=== PATIENT | female | born 1990 | race Caucasian/White ===

== ENCOUNTER 2020-09-13 23:54 | Emergency (ER) | payer OTHER, SELFPAY ==
[2020-09-14 02:06] VITALS: BP 136/78; PULSE 105; RESP 14; TEMP 37.2; O2SAT 96; BMI 16.1
--- NOTE | 2020-09-14 02:07 | ED.BACK ---
HPI - Back Pain/Injury General Chief Complaint: Back Pain/Injury Stated Complaint: Hip/Leg pain Time Seen by Provider: 09/14/20 02:05 History of Present Illness HPI Narrative: Patient is a 30-year-old female presents today with having back pain radiating down her left lower extremity. Patient denies any bowel urinary incontinence. No focal weakness. Has been having this type of pain since the end of last year. Currently already on tramadol. No coughing or congestion or upper respiratory symptoms. Pain is same as prior. Is 08/28 as shooting. Sharp in nature. Related Data Home Medications Medication Instructions Recorded Confirmed tramadol 09/14/20 Allergies Allergy/AdvReac Type Severity Reaction Status Date / Time amoxicillin [AMOXICILLIN] Allergy Mild GIVES ME Unverified 08/05/20 16:24 ANOTHER INFECTION Review of Systems Review of Systems: Constitutional: No Weight loss, No Fever, No Chills, No Night Sweats, No Fatigue, No Malaise ENT/Mouth: No Hearing loss, No Ear Pain, No Nasal Congestion, No Sinus Pain, No Hoarseness, No sore throat, No Rhinorrhea, No Swallowing Difficulty Eyes: No Eye Pain, No Swelling, No Redness, No Foreign Body, No Discharge, No Vision Changes Cardiovascular: No Chest Pain, No SOB, No Dyspnea on Exertion, No Orthopnea, No Edema, No Palpitations Respiratory: No Cough, No Sputum, No Wheezing, No Smoke Exposure, No Dyspnea Gastrointestinal: No Nausea, No Vomiting, No Diarrhea, No Constipation, No abdominal Pain, No Hematochezia, No Melena Genitourinary: no irregular bleeding, No Dysuria, No Urinary Frequency, No Hematuria, No Urinary Incontinence, No Urgency, No Flank Pain, No Urinary Flow Changes, No Hesitancy Musculoskeletal: No joint pain, No Myalgias, No Joint Swelling Skin: No Skin Lesions, No rash Neuro: No Weakness, No Numbness, No Paresthesias, No Loss of Consciousness, No Dizziness, No Headache Psych: No Anxiety/Panic, No Depression, No SI/HI/AH/VH, No Social Issues, Heme/Lymph: No Bruising, No Bleeding,No Lymphadenopathy Endocrine: No Polyuria, No Polydipsia, No Temperature Intolerance PMFSH Past Medical History Attestation statement: The following information was validated with the patient. Medical History (Updated 09/14/20 @ 04:02 by Yaritza Villegas MD) Sciatica Social History Social History Alcohol intake: never Smoking Status: Current every day smoker Smoked in Last 30 Days: Yes Substance Use Type: Marijuana Substance Use Frequency: Occasionally Last Used Substance: Days (ago) Any prior treatment program specific to substance use: No Advance Directives: No Advance Directives Information Provided: No Physical Exam Vital Signs: Vital Signs: Vital Signs Temp Pulse Resp BP Pulse Ox 09/14/20 03:01 94 14 109/76 98 09/14/20 02:47 94 14 113/67 98 09/14/20 02:42 14 111/64 96 09/14/20 02:35 14 09/14/20 02:06 98.9 F 105 H 14 136/78 96 Body Mass Index 16.1 Appearance: Alert. Oriented X3. No acute distress. Eyes: Pupils equal, round and reactive to light. ENT: Pharynx normal. Neck: Normal inspection. Neck supple. No lymph nodes noted. No crepitus CVS: Normal heart rate and rhythm. Pulses normal. Normal S1 and S2 Respiratory: No respiratory distress. Breath sounds normal. No Wheezing. No rales Abdomen: Soft and nontender. No rigidity. No distention. good BS x4 Skin: Skin warm and dry. Normal skin color. Normal skin turgor. Extremities: Positive pain on straight leg raise test on the right side. Patient has good sensation bilateral lower extremity. Pulse 2 +at dorsalis pedis. Sensation grossly intact. Skin intact. Neuro: Oriented X 3. No motor deficit. No sensory deficit. Moving all extermities. No slurred speech MDM - Back Pain/Injury MDM Narrative Medical decision making narrative: No bowel urinary incontinence. No focal weakness. Pain similar to previous bouts. No trauma today. No history of IV drug use. Patient will be given pain medication. Will monitor carefully. Pain improved. Will discharge patient home. Close follow-up on an outpatient basis. Differential Diagnosis Differential diagnosis: Likely lumbar radiculopathy and sciatica Discharge Plan Discharge Clinical Impression: Sciatica Patient Disposition: Home, Self-Care Instructions: Sciatica (ED) Prescriptions: No Action tramadol 10 mg tablet RF: 0 Referrals: Farrukh Sullivan MD [Primary Care Provider] - 2 days
[2020-09-14] MEDS: LORazepam 2 MG/ML VIAL 0.5 MG IVPUSH (02:34)
[2020-09-14 02:35] VITALS: RESP 14
[2020-09-14] MEDS: Ketorolac Tromethamine 30 MG/ML VIAL IVPUSH (02:35)
[2020-09-14] MEDS: HYDROmorphone HCl 0.5 MG/0.5 ML SYRINGE IVPUSH (02:35)
--- NOTE | 2020-09-14 02:41 | PC.NURSE ---
pt medicated for left lower back pain rad down her leg and numbness.
[2020-09-14 02:42] VITALS: BP 111/64; RESP 14; O2SAT 96
[2020-09-14 02:47] VITALS: BP 113/67; PULSE 94; RESP 14; O2SAT 98
[2020-09-14 03:01] VITALS: BP 109/76; PULSE 94; RESP 14; O2SAT 98
--- NOTE | 2020-09-14 03:02 | PC.NURSE ---
pt is feeling relief but still has a stabbing pain to her left lower back.
[2020-09-14 04:00] VITALS: BP 112/69; PULSE 73; RESP 16; O2SAT 100
== END 2020-09-14 04:33 | disposition home or self-care (01) ==
PROVIDERS: Emergency Provider Emergency Medicine Emergency Medical Services; PCP Internal Medicine
DX: M54.32 Sciatica, left side (principal); M54.31 Sciatica, right side; M79.605 Pain in left leg; F17.200 Nicotine dependence, unspecified, uncomplicated; Z71.6 Tobacco abuse counseling; F12.90 Cannabis use, unspecified, uncomplicated; Z79.899 Other long term (current) drug therapy
CPT/HCPCS: 96374; 96375; 99284; J1170; J1885; J2060

== ENCOUNTER 2020-09-14 17:22 | Emergency (ER) | payer OTHER, SELFPAY ==
[2020-09-14 18:32] VITALS: BP 140/88; PULSE 132; RESP 17; TEMP 37.3; O2SAT 99; BMI 16.1
--- NOTE | 2020-09-14 18:37 | XR_ITS ---
EXAMINATION: XR LUMBOSACRAL SPINE CLINICAL INFORMATION: Low back pain COMPARISON: Lumbar spine 10/09/2019 TECHNIQUE: Three views of the lumbosacral spine. FINDINGS: The vertebral bodies and posterior elements are normal. The disc spaces are preserved and the vertebral alignment is normal. The paraspinal soft tissues are normal. XR/XR lumbar spine 2-3V IMPRESSION: Normal lumbar spine.
[2020-09-14 19:24] LABS: Glucose Urine UA NEG (NEG); Leukocyte Esterase Urine NEG (NEG); Nitrite Urine NEG (NEG); Urine Blood 1+ (NEG); Urine Ketones 15 MG/DL (NEG); Urine Protein NEG (NEG-TRACE)
[2020-09-14 19:25] LABS: Appearance Urine CLEAR; Color Urine YELLOW
[2020-09-14 19:28] LABS: Bacteria Urine 1+ /LPF; Squamous Epithelial Cell Urine 1+ /LPF; WBC Urine 0-2 /HPF (0-4)
[2020-09-14 19:29] LABS: UPreg QC Valid YES; Urine Pregnancy NEGATIVE (NEGATIVE)
--- NOTE | 2020-09-14 19:34 | ED_ITS ---
HPI - Back Pain/Injury General Chief Complaint: Back Pain/Injury Stated Complaint: back pain Time Seen by Provider: 09/14/20 18:37 Source: patient Mode of arrival: ambulatory Limitations: no limitations History of Present Illness HPI Narrative: states history of lower back problems in the setting of pullback muscles in the past and does lot of repetitive movement at work but no heavy lifting as she knows she has back problems and felt like she pulled her back couple days ago and has been having continued pain with certain movements. MD elicited complaint: back pain Pertinent past history: prior back pain Onset (ago): day(s) Severity: moderate Similar Symptoms Previously: Yes Location: lumbar spine Radiation: none Exacerbating factors: none Relieving factors: none Work related injury: No Related Data Home Medications Medication Instructions Recorded Confirmed tramadol 09/14/20 Previous Rx's Medication Instructions Recorded cyclobenzaprine 10 mg PO TID PRN #20 tab 09/14/20 ibuprofen 800 mg PO Q8H PRN #30 tab 09/14/20 Allergies Allergy/AdvReac Type Severity Reaction Status Date / Time amoxicillin [AMOXICILLIN] Allergy Mild GIVES ME Verified 09/14/20 18:32 ANOTHER INFECTION Review of Systems Review of Systems: Constitutional: No Weight loss, No Fever, No Chills, No Night Sweats, No Fatigue, No Malaise ENT/Mouth: No Hearing loss, No Ear Pain, No Nasal Congestion, No Sinus Pain, No Hoarseness, No sore throat, No Rhinorrhea, No Swallowing Difficulty Eyes: No Eye Pain, No Swelling, No Redness, No Foreign Body, No Discharge, No Vision Changes Cardiovascular: No Chest Pain, No SOB, No Dyspnea on Exertion, No Orthopnea, No Edema, No Palpitations Respiratory: No Cough, No Sputum, No Wheezing, No Smoke Exposure, No Dyspnea Gastrointestinal: No Nausea, No Vomiting, No Diarrhea, No Constipation, No abdominal Pain, No Hematochezia, No Melena Genitourinary: no irregular bleeding, No Dysuria, No Urinary Frequency, No Hematuria, No Urinary Incontinence, No Urgency, No Flank Pain, No Urinary Flow Changes, No Hesitancy Musculoskeletal: [place] noted Skin: No rash Neuro: No Weakness, No Numbness, No Paresthesias, No Loss of Consciousness, No Dizziness, No Headache Psych: No Anxiety/Panic, No Depression, No SI/HI/AH/VH, No Social Issues Heme/Lymph: No Bruising, No Bleeding,No Lymphadenopathy Endocrine: No Polyuria, No Polydipsia, No Temperature Intolerance Yes all ot her systems are reviewed and are negative [facility] Past Medical History Attestation statement: The following information was validated with the patient. Medical History Sciatica Social History Social History Alcohol intake: never Smoking Status: Current every day smoker Substance Use Type: Marijuana Substance Use Frequency: Occasionally Advance Directives: No Advance Directives Information Provided: No Physical Exam Vital Signs: Vital Signs: Vital Signs Temp Pulse Resp BP Pulse Ox 09/14/20 20:02 99.6 F 117 H 18 119/88 97 09/14/20 18:32 99.2 F 132 H 17 140/88 H 99 Body Mass Index 16.1 reviewed Const: General: cooperative and healthy appearing; No acute distress or intoxicated appearing Nutritional Appearance: average body habitus Orientation/consciousness: patient oriented x3 HENMT: Head: Yes normal to inspection Ears: hearing grossly normal bilaterally Eyes: General: appearance normal, both eyes and all related structures Visual Petersen: normal visual petersen by confrontation Neck: Neck: Yes normal visual inspection and No tender Thyroid: Thyroid normal Chest: Chest palpation & inspection: normal inspection of the chest Resp: Effort & Inspection: normal respiratory effort Cardio: Jugular venous distension: no JVD GI: Inspection: Yes normal to inspection Percussion: Yes normal to percussion Auscultation: normal bowel sounds : General: Yes no CVA tenderness Back/Spine/Pelvis: Back: no CVA tenderness Back/spine/pelvis image: 1. mild soft Tissue TTP, no midline to palpation, no step-off, rash. Skin: General skin exam: no rashes or lesions noted Neuro: General: patient oriented x3 Extrem: General: Yes normal to inspection MDM - Back Pain/Injury MDM Narrative Medical decision making narrative: Feels better after Toradol. Will discharge home with NSAIDs/Flexeril. Stable for discharge. Out of bed ambulatory status with gait no low back pain red flags. Differential Diagnosis Differential diagnosis: Likely lumbar radiculopathy, sciatica and strain of lumbar region; Unlikely renal colic, pyelonephritis, thoracic back pain, AAA and discitis Lab Data Labs: Lab Results 09/14/20 Range/Units 19:12 Urine Color YELLOW Urine Appearance CLEAR Urine pH 6.0 (5.0-8.0) Ur Specific [place] 1.020 (1.005-1.025) Urine Protein NEG (NEG-TRACE) MG/DL Urine Glucose (UA) NEG (NEG) MG/DL Urine Ketones 15 (NEG) MG/DL Urine Blood 1+ H (NEG) Urine Nitrite NEG (NEG) Ur Leukocyte Esterase NEG (NEG) Urine RBC 1-4 (0) /HPF Urine WBC 0-2 (0-4) /HPF Ur Squamous Epith Cells 1+ /LPF Urine Bacteria 1+ /LPF Urine Test NEGATIVE (NEGATIVE) Discharge Plan Discharge Clinical Impression: Strain of lumbar region Patient Disposition: Home, Self-Care Prescriptions: New cyclobenzaprine 10 mg tablet 10 mg PO TID PRN (Reason: muscle spasm) Qty: 20 RF: 0 ibuprofen 800 mg tablet 800 mg PO Q8H PRN (Reason: pain) Qty: 30 RF: 0 No Action tramadol 10 mg tablet RF: 0 Referrals: Physician,Unknown [Primary Care Provider] - 5 days (Primary ) Interventions: ED Discharge Assessment Last Done: 09/14/20 21:11 Discharge Date/Time: 09/14/20 21:12
[2020-09-14 20:02] VITALS: BP 119/88; PULSE 117; RESP 18; TEMP 37.6; O2SAT 97
[2020-09-14] MEDS: Ketorolac Tromethamine 30 MG/ML VIAL IM (20:06)
== END 2020-09-14 21:12 | disposition home or self-care (01) ==
PROVIDERS: Nurse Practitioner Primary Care; Emergency Provider Internal Medicine
DX: S39.012A Strain of muscle, fascia and tendon of lower back, initial encounter (principal); M54.6 Pain in thoracic spine; X50.9XXA Other and unspecified overexertion or strenuous movements or postures, initial encounter; X50.0XXA Overexertion from strenuous movement or load, initial encounter; Y93.9 Activity, unspecified; Y92.9 Unspecified place or not applicable; Y99.9 Unspecified external cause status; Z79.899 Other long term (current) drug therapy; F17.200 Nicotine dependence, unspecified, uncomplicated; Z71.6 Tobacco abuse counseling; F12.90 Cannabis use, unspecified, uncomplicated
CPT/HCPCS: 72100; 81001; 81025; 96372; 99284; J1885

== ENCOUNTER 2021-02-07 19:22 | Emergency (ER) | payer OTHER, SELFPAY ==
[2021-02-07 19:29] VITALS: BP 109/67; PULSE 98; RESP 16; TEMP 36.9; O2SAT 98; BMI 16.1
[2021-02-07 20:45] LABS: Glucose Urine UA NEG (NEG); Leukocyte Esterase Urine TRACE (NEG); Nitrite Urine NEG (NEG); Specific Gravity - Urine >= 1.030 (1.005-1.025); Urine Blood 2+ (NEG); Urine Ketones NEG (NEG); Urine Protein 2+ MG/DL (NEG-TRACE)
[2021-02-07 20:51] LABS: Appearance Urine HAZY; Color Urine YELLOW
[2021-02-07 21:01] LABS: Bacteria Urine 1+ /LPF; Mucus Urine TRACE /LPF; Squamous Epithelial Cell Urine TRACE /LPF
[2021-02-07 22:05] LABS: UPreg QC Valid YES; Urine Pregnancy NEGATIVE (NEGATIVE)
--- NOTE | 2021-02-07 22:13 | ED_ITS ---
HPI - Female Genitourinary General Chief complaint: Urogenital-Female Stated complaint: diff urinating, abd pain Time Seen by Provider: 02/07/21 21:49 Source: patient Mode of arrival: ambulatory Limitations: no limitations History of Present Illness HPI Narrative: Patient states increased urinary frequency. Patient denies any abdominal pain, flank pain, fever, or chills. Patient states mild dysuria. Patient was concerned for possible STI exposure due to her still being involved with her ex- and hypertension. She denies any vaginal bleeding, vaginal discharge, or vaginal lesions. Related Data Home Medications Medication Instructions Recorded Confirmed tramadol 09/14/20 Previous Rx's Medication Instructions Recorded cyclobenzaprine 10 mg PO TID PRN #20 tab 09/14/20 ibuprofen 800 mg PO Q8H PRN #30 tab 09/14/20 cephalexin 500 mg PO QID #28 cap 02/07/21 doxycycline monohydrate 100 mg PO BID #14 cap 02/07/21 Allergies Allergy/AdvReac Type Severity Reaction Status Date / Time amoxicillin [AMOXICILLIN] Allergy Mild GIVES ME Verified 02/07/21 19:29 ANOTHER INFECTION Review of Systems Review of Systems: Yes all other systems are reviewed and are negative Constitutional: Constitutional: Reports as per HPI and Reports no additional constitutional complaints Eyes: Eyes: Reports as per HPI and Reports no additional eye complaints ENT: Reports system reviewed and no additional complaints, except as documented and Reports as per HPI Cardiovascular: Cardiovascular: Reports as per HPI and Reports no additional cardiovascular complaints Respiratory: Respiratory: Reports as per HPI and Reports no additional respiratory complaints Gastrointestinal: Gastrointestinal: Reports as per HPI, Reports no additional gastrointestinal complaints, Denies abdominal pain, Denies heartburn, Denies diarrhea, Denies loose stools, Denies nausea and Denies other Genitourinary: Genitourinary: Reports no additional female genitourinary complaints, Reports as per HPI and Reports dysuria Musculoskeletal: Musculoskeletal: Reports no additional musculoskeletal complaints and Reports as per HPI Neurologic: Reports system reviewed and no additional complaints, except as documented and Reports as per HPI Psychiatric: Psychiatric: Reports no additional psychiatric complaints and Reports as per HPI [facility] Past Medical History Medical History Sciatica Social History Social History Alcohol intake: never Smoking Status: Current every day smoker Use of substances other than those prescribed or required for medical reasons: Yes Substance Use Type: Marijuana Advance Directives: No Advance Directives Information Provided: Yes Physical Exam Vital Signs: Vital Signs: Last Vital Signs Temp 98.4 F 02/07/21 19:29 Pulse 82 02/07/21 22:27 Resp 14 02/07/21 22:27 BP 102/66 02/07/21 22:27 Pulse Ox 100 02/07/21 22:27 Body Mass Index 16.1 Const: General: cooperative, healthy appearing, comfortable, no acute distress, well developed, alert, awake and Physically active HENMT: Head: Yes normal to inspection, Yes No palpable skull fracture present, Yes normocephalic, Yes atraumatic, No abrasion, No Maravilla's sign, No contusion, No cranial bruits, No hematoma, No laceration, No occipital foramen tenderness, No palpable skull fracture, No raccoon eyes, No scalp lesion, No scalp tenderness, No Temporal artery tenderness present and No periorbital ecchymosis Eyes: General: appearance normal, both eyes and all related structures Neck: Neck: Yes normal visual inspection, Yes full ROM, Yes no lymphadenopathy, Yes no meningeal signs, Yes trachea midline, Yes supple and No tender Chest: Chest palpation & inspection: normal inspection of the chest and normal palpation of entire chest wall Resp: Effort & Inspection: normal respiratory effort and able to speak in complete sentences Auscultation: clear to auscultation bilaterally Cardio: Jugular venous distension: no JVD Heart sounds: S1 normal heart sound present and S2 normal heart sound present GI: Inspection: Yes normal to inspection and No abdominal wall ecchymosis Palpation (GI): Soft to palpation, not firm, nontender, no guarding and not rigid : General: No CVA tenderness and Yes no CVA tenderness Back/Spine/Pelvis: Back: no CVA tenderness, No CVA tenderness and No back tenderness Skin: General skin exam: no rashes or lesions noted and elasticity normal Neuro: General: patient oriented x3, no meningeal signs and CN's II-XI intact bilaterally Extrem: General: Yes normal to inspection and Yes full ROM Psych: Appearance: grossly normal, well kempt and not disheveled Course Course Course Narrative: History physical exam negative for signs pyelonephritis or kidney stone. Patient does not have any abdominal tenderness or CVA flanks. Will send UA and chlamydia gonorrhea sample Reevaluation(s) Reevaluation #1: Patient is agreeable to be treated prophylactically STD. Patient does not have allergic reaction to amoxicillin. Patient was taking amoxicillin she gets another infection, but denies itchiness of skin, itchy rash, swelling of lips, swelling of tongue, itchy throat, or shortness of breath/chest pain.. Will give ceftriaxone IM and discharged with doxycycline and Keflex MDM - Female Genitourinary MDM Narrative Medical decision making narrative: UTI. STD exposure. Lab Data Labs: Lab Results 02/07/21 02/07/21 Range/Units 20:12 20:12 Urine Color YELLOW Urine Appearance HAZY Urine pH 6.0 (5.0-8.0) Ur Specific [place] >= 1.030 H (1.005-1.025) Urine Protein 2+ H (NEG-TRACE) MG/DL Urine Glucose (UA) NEG (NEG) MG/DL Urine Ketones NEG (NEG) MG/DL Urine Blood 2+ H (NEG) Urine Nitrite NEG (NEG) Ur Leukocyte Esterase TRACE H (NEG) Urine RBC 1-4 (0) /HPF Urine WBC 5-9 H (0-4) /HPF Ur Squamous Epith Cells TRACE /LPF Urine Bacteria 1+ /LPF Urine Mucus TRACE /LPF Urine Test NEGATIVE (NEGATIVE) Discharge Plan Discharge Clinical Impression: Urinary tract infection Patient Disposition: Home, Self-Care Instructions: Urinary Tract Infection in Women (ED) Additional Instructions: Return to the ED immediately any abdominal pain, nausea, vomiting, flank pain, fever,, dysuria, hematuria, vaginal bleeding, or any other concerning symptoms. Prescriptions: New cephalexin 500 mg capsule 500 mg PO QID Qty: 28 RF: 0 doxycycline monohydrate 100 mg capsule 100 mg PO BID Qty: 14 RF: 0 No Action tramadol 10 mg tablet RF: 0 cyclobenzaprine 10 mg tablet 10 mg PO TID PRN (Reason: muscle spasm) Qty: 20 RF: 0 ibuprofen 800 mg tablet 800 mg PO Q8H PRN (Reason: pain) Qty: 30 RF: 0 Referrals: Farrukh Sullivan MD [Primary Care Provider] - 2 days (UTI) Discharge Date/Time: 02/07/21 23:36 Print Language: Slovenian
[2021-02-07 22:27] VITALS: BP 102/66; PULSE 82; RESP 14; O2SAT 100
[2021-02-07] MEDS: cefTRIAXone sodium 500 MG, Lidocaine HCl 1 % MPF 1 ML IM (23:02)
[2021-02-08 09:51] LABS: CT PCR DETECTED (Not Detect.); NG PCR NOT DETECTED (Not Detect.)
== END 2021-02-07 23:36 | disposition home or self-care (01) ==
PROVIDERS: Physician Assistant; Emergency Provider Emergency Medicine; PCP Internal Medicine
DX: N39.0 Urinary tract infection, site not specified (principal); A56.02 Chlamydial vulvovaginitis; I10 Essential (primary) hypertension; F17.200 Nicotine dependence, unspecified, uncomplicated; F12.90 Cannabis use, unspecified, uncomplicated
CPT/HCPCS: 36415; 81001; 81025; 87491; 87591; 96372; 99284; J0696

== ENCOUNTER 2021-02-16 09:52 | Outpatient (REF) | payer OTHER, SELFPAY ==
[2021-02-16 12:31] LABS: Syphilis Screen Nonreactive (Nonreactive)
[2021-02-17 07:58] LABS: HBsAGNum1 0.14 S/CO (0.00-0.99); HIV AB/AG Nonreactive (Nonreactive); HIV Num 1 0.12 S/CO (0.00-0.99); Hepatitis B Surface Antigen Negative (Negative)
[2021-02-17 08:56] LABS: ~HepC Num1 0.08 S/CO (0.00-0.79); ~Hepatitis C Antibody Nonreactive (Nonreactive)
[2021-02-17 14:27] LABS: BV Int Neg Control Negative (Negative); BV Int Pos Control Positive (Positive)
== END 2021-02-16 09:53 | disposition home or self-care (01) ==
LOC: HO.LAB 09:52
PROVIDERS: PCP Internal Medicine; Visit Provider Obstetrics & Gynecology
DX: Z01.419 Encounter for gynecological examination (general) (routine) without abnormal findings (principal); Z11.4 Encounter for screening for human immunodeficiency virus [HIV]; A74.9 Chlamydial infection, unspecified
CPT/HCPCS: 36415; 86780; 86803; 87340; 87389; 87480; 87510; 87660

== ENCOUNTER 2021-03-15 11:12 | Outpatient (REF) | payer OTHER, SELFPAY ==
[2021-03-15 17:56] LABS: CT PCR NOT DETECTED (Not Detect.); NG PCR DETECTED (Not Detect.)
[2021-03-16 08:08] LABS: HIV AB/AG Nonreactive (Nonreactive)
[2021-03-16 08:29] LABS: HBsAGNum1 0.25 S/CO (0.00-0.99); Hepatitis B Surface Antigen Negative (Negative); ~HepC Num1 0.14 S/CO (0.00-0.79); ~Hepatitis C Antibody Nonreactive (Nonreactive)
[2021-03-16 08:46] LABS: Syphilis Screen Nonreactive (Nonreactive)
== END 2021-03-15 11:13 | disposition home or self-care (01) ==
LOC: HO.LAB 11:12
PROVIDERS: PCP Internal Medicine; Visit Provider Obstetrics & Gynecology
DX: A74.9 Chlamydial infection, unspecified (principal); N39.0 Urinary tract infection, site not specified; F17.200 Nicotine dependence, unspecified, uncomplicated
CPT/HCPCS: 36415; 86780; 86803; 87086; 87340; 87389; 87491; 87591; 99212

== ENCOUNTER 2021-03-17 14:04 | Outpatient (REF) | payer OTHER, SELFPAY ==
[2021-03-18 08:03] LABS: Syphilis Screen Nonreactive (Nonreactive)
[2021-03-18 09:01] LABS: BV Int Neg Control Negative (Negative); BV Int Pos Control Positive (Positive)
== END 2021-03-17 14:05 | disposition home or self-care (01) ==
LOC: HO.LAB 14:04
PROVIDERS: PCP Internal Medicine; Visit Provider Obstetrics & Gynecology
DX: A54.9 Gonococcal infection, unspecified (principal)
CPT/HCPCS: 36415; 86780; 87480; 87510; 87660; 96372; 99212; J0696

== ENCOUNTER 2021-12-14 12:49 | Outpatient (REF) | payer OTHER, SELFPAY ==
[2021-12-14 15:11] LABS: Syphilis Screen Nonreactive (Nonreactive)
[2021-12-14 16:12] LABS: CT PCR DETECTED (Not Detect.); NG PCR NOT DETECTED (Not Detect.)
[2021-12-15 07:49] LABS: HBsAGNum1 0.17 S/CO (0.00-0.99); HIV AB/AG Nonreactive (Nonreactive); HIV Num 1 0.08 S/CO (0.00-0.99); Hepatitis B Surface Antigen Negative (Negative); ~HepC Num1 0.19 S/CO (0.00-0.79); ~Hepatitis C Antibody Nonreactive (Nonreactive)
[2021-12-15 10:02] LABS: BV Int Neg Control Negative (Negative); BV Int Pos Control Positive (Positive)
== END 2021-12-14 12:50 | disposition home or self-care (01) ==
LOC: HO.LAB 12:49
PROVIDERS: PCP Internal Medicine; Visit Provider Obstetrics & Gynecology
DX: B37.3 Candidiasis of vulva and vagina (principal); Z11.3 Encounter for screening for infections with a predominantly sexual mode of transmission
CPT/HCPCS: 36415; 86780; 86803; 87340; 87389; 87480; 87491; 87510; 87591; 87660; 99212

== ENCOUNTER 2022-08-15 10:11 | Emergency (ER) | payer OTHER, SELFPAY ==
[2022-08-15 10:34] VITALS: BP 112/70; PULSE 74; RESP 18; TEMP 37.1; O2SAT 99; BMI 18.6
--- NOTE | 2022-08-15 12:55 | ED.GENADULT ---
HPI - General Adult General Chief complaint: Dental/Oral Stated complaint: tooth pain Time Seen by Provider: 08/15/22 11:17 Source: patient Mode of arrival: ambulatory Limitations: no limitations History of Present Illness HPI narrative: Patient is a 32 year old female presenting to the emergency department today with dental pain. Patient states that her right upper tooth has been bothering her a lot more lately. Patient states that she is in the process of getting in with a dentist but the pain is unbearable. Patient states that she does not want any pain medication with narcotics in it. Patient denies any dizziness, lightheadedness, abdominal pain, nausea, vomiting, fever, chills, blurry vision, double vision, loss of vision, chest pain, difficulty breathing, shortness of breath, back pain, night sweats, pain with urination, increased urinary frequency, increased urinary urgency, blood in her urine or stool, syncope or a near syncopal episode, recent trauma or falls, bowel incontinence, bladder incontinence, bowel retention, bladder retention, or any other complaints at this time. Onset (ago): day(s) Location: mouth Radiation: non-radiation Severity: mild Severity scale (1-10): 2 Quality: constant Pain Consistency: constant Relieving factors: none Exacerbating factors: none Associated symptoms: denies other symptoms Treatments prior to arrival: none Related Data Home Medications Medication Instructions Recorded Confirmed tramadol 09/14/20 Previous Rx's Medication Instructions Recorded cyclobenzaprine 10 mg tablet 10 mg PO TID PRN muscle spasm #20 09/14/20 tabs ibuprofen 800 mg tablet 800 mg PO Q8H PRN pain #30 tabs 09/14/20 cephalexin 500 mg capsule 500 mg PO QID #28 caps 02/07/21 doxycycline monohydrate 100 mg 100 mg PO BID #14 caps 02/07/21 capsule terconazole 0.8 % vaginal cream 1 appful vaginal BEDTIME 3 days 02/18/21 #20 grams nitrofurantoin 100 mg PO BID 5 days #10 caps 03/15/21 monohydrate/macrocrystals 100 mg capsule (Macrobid) terconazole 0.8 % vaginal cream 1 appful vaginal BEDTIME 3 days 12/14/21 #20 grams metronidazole 500 mg tablet 500 mg PO BID 7 days #14 tabs 12/15/21 azithromycin 500 mg tablet 1,000 mg PO ONCE #2 tabs 12/16/21 fluconazole 150 mg tablet 150 mg PO QWEEK 2 doses #2 tabs 08/15/22 (Diflucan) naproxen 500 mg tablet 500 mg PO BID 7 days #14 tabs 08/15/22 penicillin V potassium 500 mg 500 mg PO BID 10 days #20 tabs 08/15/22 tablet Allergies Allergy/AdvReac Type Severity Reaction Status Date / Time amoxicillin [AMOXICILLIN] Allergy Mild GIVES ME Verified 03/17/21 14:12 ANOTHER INFECTION Review of Systems Constitutional: Constitutional: Reports no additional constitutional complaints, Denies chills, Denies fever(s) and Denies night sweats Eyes: Eyes: Reports no additional eye complaints, Denies blurry vision, Denies change in vision, Denies diplopia, Denies eye discharge, Denies loss of vision and Denies eye pain ENT: Denies dizziness Comments: right upper mouth pain Cardiovascular: Cardiovascular: Reports no additional cardiovascular complaints, Denies chest pain, Denies lightheadedness, Denies Loss of Consciousness and Denies dyspnea Respiratory: Respiratory: Reports no additional respiratory complaints and Denies dyspnea Gastrointestinal: Gastrointestinal: Reports no additional gastrointestinal complaints, Denies abdominal pain, Denies melena, Denies hematochezia, Denies change in bowel habits and Denies change in stool character Genitourinary: Genitourinary: Denies hematuria, Denies urinary frequency, Denies dysuria, Denies urinary incontinence, Denies urinary hesitancy and Denies urinary urgency Musculoskeletal: Musculoskeletal: Reports no additional musculoskeletal complaints, Denies numbness and Denies tingling Neurologic: Denies dizziness, Denies loss of vision, Denies numbness and Denies tingling Psychiatric: Psychiatric: Reports no additional psychiatric complaints Endocrine: Endocrine: Reports no additional endocrine complaints Hematologic/Lymphatic: Hematologic/Lymphatic: Reports no additional hematologic/lymphatic complaints Allergic/Immunologic: Allergic/Immunologic: Reports no additional allergic/immunologic complaints PMFSH Past Medical History Attestation statement: The following information was validated with the patient. Source: old records reviewed Medical History Sciatica Social History Social History Alcohol intake: never Substance Use Type: Marijuana Advance Directives: No Advance Directives Information Provided: Yes Physical Exam ED Vital Signs: Vital Signs - 24 hr 08/15/22 10:34 Temperature 98.8 F Pulse Rate 74 Respiratory Rate 18 Blood Pressure 112/70 Pulse Oximetry 99 Oxygen Delivery Method Room Air BMI result Body Mass Index 18.6 Const General: cooperative, no acute distress, alert and awake Nutritional Appearance: well nourished Orientation/consciousness: patient oriented x3 Limitations: no limitations HENMT Head: Yes normal to inspection and Yes atraumatic Ears: hearing grossly normal bilaterally and external ears normal General nose exam: Normal external nose present, no nasal discharge noted and no epistaxis Face and sinus: Yes normal facial exam, No abrasion and No laceration Mouth: Normal oral and palatal mucosa present, no drooling and no muffled voice Teeth and gingiva: poor dentition and other (minimal swelling and erythema near the 2nd tooth) Eyes General: appearance normal, both eyes and all related structures Periorbital: periorbital findings normal Eyelids: Yes eyelids normal Conjunctivae: conjunctivae normal Pupils: Equal, round and reactive pupils present EOM: EOMs intact bilaterally Neck Neck: Yes normal visual inspection, Yes full ROM and Yes no lymphadenopathy Chest Chest palpation & inspection: normal inspection of the chest Resp Effort & Inspection: normal respiratory effort and able to speak in complete sentences Auscultation: clear to auscultation bilaterally Cardio Rate: regular rate Rhythm: regular rhythm GI Inspection: Yes normal to inspection Neuro General: patient oriented x3 and moves all extremities Cranial nerves: Yes Equal, round and reactive pupils present Cognition (Neuro): normal cognition Motor exam (neuro): 5/5 motor strength present throughout Sensory Exam: Normal double simultaneous stimulation for sensation Coordination: [id number] test normal Extrem General: Yes normal to inspection, Yes full ROM and Yes capillary refill normal Psych Appearance: grossly normal Mental Status: mental status grossly normal Affect: normal affect Attitude: cooperative Thought process: Normal thought process present Thought content: Normal thought content present Insight: Good insight present (Psych) Medical Decision Making MDM Narrative Medical decision making narrative: Patient is a 32 year old female presenting to the emergency department today with dental pain. Patient's physical exam showed poor dentition throughout with minimal erythema and swelling near tooth #2, no area of fluctuance for drainage. I explained my physical exam findings to the patient. I answered all questions asked by the patient. I stressed the importance of the patient taking her medication as prescribed. I stressed the importance of the patient following up with her primary care provider and a dentist. I stressed the importance of the patient returning to the emergency department immediately if her symptoms were to worsen or if she were to develop any dizziness, shortness of breath, difficulty breathing, chest pain, blurry vision, loss of vision, nausea, vomiting, abdominal pain, fever, chills, back pain, or any other complaints. Patient verbalized agreement and understanding with this treatment plan and discharge. Medical Records Medical records reviewed: Yes I reviewed the patient's medical records. Discharge Plan Discharge Clinical Impression: Abscess, dental Patient Disposition: Home, Self-Care Instructions: Dental Abscess (ED) Additional Instructions: Follow up with your primary care provider. Return to the emergency department immediately if your symptoms worsen or if you develop any dizziness, shortness of breath, difficulty breathing, chest pain, blurry vision, loss of vision, nausea, vomiting, abdominal pain, fever, chills, back pain, or any other complaints. Call or visit any of the clinics below to establish with a dentist: [facility] [address] [place] [address] [facility] [address] [facility], [address] [place] [address] [address] [facility] [address] [place] [id number] [facility] [address] [place] [address] [place] [address] [place] [address] Prescriptions: New penicillin V potassium 500 mg tablet 500 mg PO BID 10 Days Qty: 20 0RF naproxen 500 mg tablet 500 mg PO BID 7 Days Qty: 14 0RF fluconazole [Diflucan] 150 mg tablet 150 mg PO QWEEK Qty: 2 0RF Rx Instructions: Take one today and one with the last antibiotic. No Action terconazole 0.8 % cream 1 appful vaginal BEDTIME 3 Days Qty: 20 0RF metronidazole 500 mg tablet 500 mg PO BID 7 Days Qty: 14 0RF azithromycin 500 mg tablet 1,000 mg PO ONCE Qty: 2 0RF tramadol 10 mg tablet Label Comments: pt ran out of the tramadol cyclobenzaprine 10 mg tablet 10 mg PO TID PRN (Reason: muscle spasm) Qty: 20 0RF ibuprofen 800 mg tablet 800 mg PO Q8H PRN (Reason: pain) Qty: 30 0RF cephalexin 500 mg capsule 500 mg PO QID Qty: 28 0RF doxycycline monohydrate 100 mg capsule 100 mg PO BID Qty: 14 0RF nitrofurantoin monohyd/m-cryst [Macrobid] 100 mg capsule 100 mg PO BID 5 Days Qty: 10 0RF terconazole 0.8 % cream 1 appful vaginal BEDTIME 3 Days Qty: 20 0RF Referrals: Farrukh Sullivan MD [Primary Care Provider] - Interventions: ED Discharge Assessment Last Done: 08/15/22 13:42 Discharge Date/Time: 08/15/22 13:43 Print Language: Tajik
== END 2022-08-15 13:43 | disposition home or self-care (01) ==
PROVIDERS: Emergency Provider Emergency Medicine; PCP Internal Medicine
DX: K04.7 Periapical abscess without sinus (principal); Z79.899 Other long term (current) drug therapy
CPT/HCPCS: 99282; 99283

== ENCOUNTER 2022-09-11 12:45 | Emergency (ER) | payer OTHER, SELFPAY ==
[2022-09-11 13:42] VITALS: BP 125/74; PULSE 83; RESP 16; TEMP 37.1; O2SAT 99; BMI 18.6
[2022-09-11 14:04] LABS: Appearance Urine Clear; Color Urine Yellow; Glucose Urine UA Negative (Negative); Leukocyte Esterase Urine Small (1+) (Negative); Nitrite Urine Negative (Negative); UMIC TRIGGER UACC YES; Urine Blood Negative (Negative); Urine Ketones Negative (Negative); Urine Protein Negative (Neg-Trace)
[2022-09-11 14:40] LABS: Bacteria Urine 1+ (None Seen); Hyaline Casts Urine 0-2 /LPF (0-2); Squamous Epithelial Cell Urine 0-2 /HPF (0-2); UACC Culture Trigger YES
--- NOTE | 2022-09-11 15:27 | ED.FEMALEGU ---
HPI - Female Genitourinary General Chief complaint: Urogenital-Female Stated complaint: uti Time Seen by Provider: 09/11/22 15:08 Source: patient Mode of arrival: ambulatory Limitations: no limitations History of Present Illness HPI Narrative: Patient is a 32-year-old female who presents emergency department for evaluation of burning with urination, urinary frequency and urgency x2 days. Voiding in small amounts, feeling of incomplete void. Reports a new sexual partner within the last 3 months. Requesting testing and treatment for sexually transmitted infections. Denies possibility of reporting that she has an IUD in place. Denies fevers, chills, nausea, vomiting, abdominal pain, back pain, hematuria, abnormal vaginal discharge. Related Data Home Medications Medication Instructions Recorded Confirmed tramadol 09/14/20 Previous Rx's Medication Instructions Recorded cyclobenzaprine 10 mg tablet 10 mg PO TID PRN muscle spasm #20 09/14/20 tabs ibuprofen 800 mg tablet 800 mg PO Q8H PRN pain #30 tabs 09/14/20 cephalexin 500 mg capsule 500 mg PO QID #28 caps 02/07/21 doxycycline monohydrate 100 mg 100 mg PO BID #14 caps 02/07/21 capsule terconazole 0.8 % vaginal cream 1 appful vaginal BEDTIME 3 days 02/18/21 #20 grams nitrofurantoin 100 mg PO BID 5 days #10 caps 03/15/21 monohydrate/macrocrystals 100 mg capsule (Macrobid) terconazole 0.8 % vaginal cream 1 appful vaginal BEDTIME 3 days 12/14/21 #20 grams metronidazole 500 mg tablet 500 mg PO BID 7 days #14 tabs 12/15/21 azithromycin 500 mg tablet 1,000 mg PO ONCE #2 tabs 12/16/21 fluconazole 150 mg tablet 150 mg PO QWEEK 2 doses #2 tabs 08/15/22 (Diflucan) naproxen 500 mg tablet 500 mg PO BID 7 days #14 tabs 08/15/22 penicillin V potassium 500 mg 500 mg PO BID 10 days #20 tabs 08/15/22 tablet cefuroxime axetil 250 mg tablet 250 mg PO Q12H #14 tabs 09/11/22 Allergies Allergy/AdvReac Type Severity Reaction Status Date / Time amoxicillin [AMOXICILLIN] Allergy Mild GIVES ME Verified 03/17/21 14:12 ANOTHER INFECTION Review of Systems Review of Systems: Constitutional: No weight loss, fever, chills, weakness or fatigue. Skin: No rash or itching. Cardiovascular: No chest pain, chest pressure or chest discomfort. No palpitations Respiratory: No shortness of breath, cough or sputum production. Gastrointestinal: No anorexia, nausea, vomiting or diarrhea. No abdominal pain Genitourinary: Positive burning micturition. Positive urinary frequency Musculoskeletal: No muscle pain, back pain, joint pain or stiffness. Psychiatric: No depression or anxiety. Yes all other systems are reviewed and are negative [facility] Past Medical History Attestation statement: The following information was validated with the patient. Medical History Sciatica Social History Social History Alcohol intake: never Substance Use Type: Marijuana Advance Directives: No Advance Directives Information Provided: No Physical Exam Vital Signs: Vital Signs: Last Vital Signs Temp 98.7 F 09/11/22 13:42 Pulse 83 09/11/22 13:42 Resp 16 09/11/22 13:42 BP 125/74 09/11/22 13:42 Pulse Ox 99 09/11/22 13:42 O2 Del Method 09/11/22 13:42 BMI result Body Mass Index 18.6 Vital signs have been reviewed as normal and appeared to be correct. Blood pressure normal.? Heart rate normal.? Respiration rate normal. Temperature normal.? Oxygen saturation normal. Appearance: Alert.?Oriented to person, place and time. No acute distress.?Normal affect. Eyes: Pupils equal, round and reactive to light.? ENT: Pharynx normal.?? Neck: Normal inspection.? Neck supple.?? CVS: Heart sounds normal. Normal heart rate and rhythm.? Pulses normal.?? Respiratory: No respiratory distress.? Lung sounds clear to auscultation bilaterally?? Abdomen: Soft and non-tender. Normoactive bowel sounds. No CVA tenderness? Skin: Skin warm and dry.? Normal skin color.? ? Extremities: No lower extremity edema.? Neuro: Moves all extremities spontaneously. Sensation intact bilaterally. No focal neuro deficits. Ambulates with normal steady gait. Course Course Course Narrative: Patient is a 32-year-old female with no significant past medical history presenting to the emergency department for evaluation of genitourinary symptoms. New sexual partner requesting testing for sexually transmitted infection. Testing pending for chlamydia and gonorrhea have resulted as negative. Urinalysis with leukocyte esterase and wbc's, 1+ bacteria, may be mild urinary tract infection patient to receive prescription for cefuroxime to begin tomorrow for 7 days. Does not appear consistent with pyelonephritis, nephrolithiasis, or hydronephrosis. She is overall well-appearing. Abdominal exam is benign. Vital signs are stable she is afebrile without tachycardia. Stable for discharge home, outpatient follow-up with primary care provider as needed, reviewed worsening signs and symptoms to return back to the emergency department for. All questions were answered, patient was discharged home in stable condition. [facility] - Female Genitourinary Medical Records Attestation: I reviewed the patient's medical records. Lab Data Attestation: I reviewed the patient's lab results. Labs: Lab Results 09/11/22 09/11/22 Range/Units 13:56 13:58 Urine Color Yellow Urine Appearance Clear Urine pH 6.0 (5.0-9.0) Ur Specific Lucas 1.020 (1.005-1.025) Urine Protein Negative (Neg-Trace) mg/dL Urine Glucose (UA) Negative (Negative) mg/dL Urine Ketones Negative (Negative) mg/dL Urine Blood Negative (Negative) Urine Nitrite Negative (Negative) Ur Leukocyte Esterase Small (1+) H (Negative) Urine RBC 3-5 H (0-2) /HPF Urine WBC 11-20 H (0-5) /HPF Ur Squamous Epith Cells 0-2 (0-2) /HPF Urine Bacteria 1+ (None Seen) Hyaline Casts 0-2 (0-2) /LPF Chlam trachomat DNA PCR NOT DETECTED (Not Detect.) N.gonorrhoeae DNA (PCR) NOT DETECTED (Not Detect.) Discharge Plan Discharge Clinical Impression: UTI (urinary tract infection) Patient Disposition: Home, Self-Care Instructions: Urinary Tract Infection in Women (ED) Additional Instructions: You have been given a prescription for cefuroxime to take twice daily for urinary tract infection please complete this entire course. Return to the emergency department any new or worsening symptoms or concerns such as increasing or worsening of pain, burning, urinary frequency, fevers, chills, nausea, vomiting, abdominal pain, back pain. Follow-up with your primary care provider as needed. Prescriptions: New cefuroxime axetil 250 mg tablet 250 mg PO Q12H Qty: 14 0RF No Action terconazole 0.8 % cream 1 appful vaginal BEDTIME 3 Days Qty: 20 0RF metronidazole 500 mg tablet 500 mg PO BID 7 Days Qty: 14 0RF azithromycin 500 mg tablet 1,000 mg PO ONCE Qty: 2 0RF tramadol 10 mg tablet Label Comments: pt ran out of the tramadol cyclobenzaprine 10 mg tablet 10 mg PO TID PRN (Reason: muscle spasm) Qty: 20 0RF ibuprofen 800 mg tablet 800 mg PO Q8H PRN (Reason: pain) Qty: 30 0RF cephalexin 500 mg capsule 500 mg PO QID Qty: 28 0RF doxycycline monohydrate 100 mg capsule 100 mg PO BID Qty: 14 0RF penicillin V potassium 500 mg tablet 500 mg PO BID 10 Days Qty: 20 0RF naproxen 500 mg tablet 500 mg PO BID 7 Days Qty: 14 0RF fluconazole [Diflucan] 150 mg tablet 150 mg PO QWEEK Qty: 2 0RF Rx Instructions: Take one today and one with the last antibiotic. nitrofurantoin monohyd/m-cryst [Macrobid] 100 mg capsule 100 mg PO BID 5 Days Qty: 10 0RF terconazole 0.8 % cream 1 appful vaginal BEDTIME 3 Days Qty: 20 0RF Interventions: ED Discharge Assessment Last Done: 09/11/22 15:46 Discharge Date/Time: 09/11/22 15:46
[2022-09-11 15:39] LABS: CT PCR NOT DETECTED (Not Detect.); NG PCR NOT DETECTED (Not Detect.)
[2022-09-11 15:45] LABS: UPreg QC Valid YES; Urine Pregnancy NEGATIVE (NEGATIVE)
== END 2022-09-11 15:46 | disposition home or self-care (01) ==
PROVIDERS: Nurse Practitioner Family; Emergency Provider Emergency Medicine; PCP Internal Medicine
DX: N39.0 Urinary tract infection, site not specified (principal); B96.20 Unspecified Escherichia coli [E. coli] as the cause of diseases classified elsewhere; Z20.2 Contact with and (suspected) exposure to infections with a predominantly sexual mode of transmission
CPT/HCPCS: 81001; 81003; 81025; 87086; 87088; 87186; 87491; 87591; 99282; 99283

== ENCOUNTER 2023-07-08 14:38 | Emergency (ER) | payer OTHER, SELFPAY ==
[2023-07-08 15:23] VITALS: BP 98/59; PULSE 97; RESP 18; TEMP 36.9; O2SAT 98; BMI 18.6
[2023-07-08 15:46] LABS: Basophils Percent Auto 0.4 % (0-2); Eosinophils Absolute Auto 0.2 X10*3/uL (0.0-0.4); Eosinophils Percent Auto 2.5 % (0-4); Hematocrit 41.7 % (37.0-47.0); Hemoglobin 13.6 g/dl (12.0-16.0); Imm Gran Abs Auto 0.01 X10*3/uL (0.00-0.03); Imm Gran Pct Auto 0.1 % (0.0-0.4); Lymphocytes Percent Auto 26.1 % (20-40); MANUAL DIFF FLAG NO; Mean Corpuscular HGB Conc 32.6 g/dl (31.0-35.0); Mean Corpuscular Hemoglobin 28.1 pg (27.0-33.0); Mean Corpuscular Volume 86.2 fL (80.0-98.0); Monocytes Absolute Auto 0.5 X10*3/uL (0.1-1.2); Monocytes Percent Auto 6.2 % (2-11); Neutrophils Absolute Auto 4.9 x10*3/uL (2.0-8.3); Neutrophils Percent Auto 64.7 % (45-73); Platelet Count 426 X10*3/uL (160-400); Red Blood Count 4.84 X10*6/uL (4.20-5.50); Red Cell Distribution Width 12.7 % (11.0-16.0); White Blood Count 7.6 X10*3/uL (4.8-10.8)
[2023-07-08 15:48] LABS: Appearance Urine Clear; Color Urine Yellow; Glucose Urine UA Negative (Negative); Leukocyte Esterase Urine Moderate (2+) (Negative); Nitrite Urine Negative (Negative); UMIC TRIGGER UACC YES; Urine Blood Small (1+) (Negative); Urine Ketones Negative (Negative); Urine Protein Negative (Neg-Trace)
[2023-07-08 15:51] LABS: UPreg QC Valid YES; Urine Pregnancy NEGATIVE (NEGATIVE)
[2023-07-08 15:59] LABS: Bacteria Urine None Seen (None Seen); Hyaline Casts Urine 0-2 /LPF (0-2); Squamous Epithelial Cell Urine 0-2 /HPF (0-2); UACC Culture Trigger YES
[2023-07-08 16:03] LABS: Alanine Aminotransferase 7 U/L (0-31); Albumin Level 4.2 g/dL (3.5-5.0); Alkaline Phosphatase 70 U/L (39-117); Anion Gap 11 (12-20); Aspartate Amino Transferase 15 U/L (5-31); Bilirubin Total 0.5 mg/dL (0.0-1.0); Blood Urea Nitrogen 10 mg/dL (9-16); Calcium 9.7 mg/dL (8.4-10.2); Carbon Dioxide 24 mmol/L (22-29); Chloride 107 mmol/L (96-108); Creatinine Clr Calc Pharmacy 87.8; Estimated Glomerular Filt Rate > 60; Glucose Random 116 mg/dL (60-115); Potassium 4.2 mmol/L (3.3-5.1); Sodium 138 mmol/L (135-145); Total Protein 7.9 g/dL (6.5-8.0)
--- NOTE | 2023-07-08 17:36 | ED_ITS ---
HPI - General Adult General Chief complaint: General Medical Stated complaint: blood in feces Time Seen by Provider: 07/08/23 16:09 Source: patient Mode of arrival: ambulatory Limitations: no limitations History of Present Illness HPI narrative: Patient is a 33-year-old female presenting the emergency department with complaint of bright red rectal bleeding as well as dysuria and urinary frequency since this morning. Patient reports history of chronic constipation and straining with bowel movements. She denies any dark, tarry stool. Denies abdominal pain. Denies nausea, vomiting or diarrhea. Denies fevers. Denies back or flank pain. Has not tried any OTC treatments for her symptoms. MD complaint: rectal bleeding, dysuria Onset (ago): hour(s) Location: genitals Radiation: non-radiation Associated symptoms: denies other symptoms Treatments prior to arrival: none Related Data Home Medications Medication Instructions Recorded Confirmed tramadol 09/14/20 Previous Rx's Medication Instructions Recorded cyclobenzaprine 10 mg tablet 10 mg PO TID PRN muscle spasm #20 09/14/20 tabs ibuprofen 800 mg tablet 800 mg PO Q8H PRN pain #30 tabs 09/14/20 cephalexin 500 mg capsule 500 mg PO QID #28 caps 02/07/21 doxycycline monohydrate 100 mg 100 mg PO BID #14 caps 02/07/21 capsule terconazole 0.8 % vaginal cream 1 appful vaginal BEDTIME 3 days 02/18/21 #20 grams nitrofurantoin 100 mg PO BID 5 days #10 caps 03/15/21 monohydrate/macrocrystals 100 mg capsule (Macrobid) terconazole 0.8 % vaginal cream 1 appful vaginal BEDTIME 3 days 12/14/21 #20 grams metronidazole 500 mg tablet 500 mg PO BID 7 days #14 tabs 12/15/21 azithromycin 500 mg tablet 1,000 mg PO ONCE #2 tabs 12/16/21 fluconazole 150 mg tablet 150 mg PO QWEEK 2 doses #2 tabs 08/15/22 (Diflucan) naproxen 500 mg tablet 500 mg PO BID 7 days #14 tabs 08/15/22 penicillin V potassium 500 mg 500 mg PO BID 10 days #20 tabs 08/15/22 tablet cefuroxime axetil 250 mg tablet 250 mg PO Q12H #14 tabs 09/11/22 lidocaine 3 %-hydrocortisone 0.5 % 1 appl HI BID #98 grams 07/08/23 rectal cream xxypoxlob-admantxtrcpuvx-pkkj vera 1 appl HI BEDTIME #1 ea 07/08/23 3 %-2.5 % (7 gram) rectal kit nitrofurantoin macrocrystal 100 mg 100 mg PO BID 5 days #10 caps 07/08/23 capsule Allergies Allergy/AdvReac Type Severity Reaction Status Date / Time amoxicillin [AMOXICILLIN] Allergy Mild GIVES ME Verified 03/17/21 14:12 ANOTHER INFECTION Review of Systems Review of Systems: As per HPI. Yes all other systems are reviewed and are negative Constitutional: Constitutional: Reports as per HPI [facility] Past Medical History Medical History Sciatica Social History Social History Alcohol intake: never Substance Use Type: Marijuana Advance Directives: No Advance Directives Information Provided: No Physical Exam ED Vital Signs: Vital Signs - 24 hr 07/08/23 15:23 Temperature 98.5 F Pulse Rate 97 Respiratory Rate 18 Blood Pressure 98/59 L Pulse Oximetry 98 Oxygen Delivery Method Room Air BMI result Body Mass Index 18.6 Vital signs have been reviewed and appear to be correct. Blood pressure mildly hypotensive. Heart rate normal. Respiratory rate normal. Temperature normal. Oxygen saturation normal. Const General: cooperative, healthy appearing and no acute distress Orientation/consciousness: oriented to person, oriented to place, oriented to time and patient oriented x3 Limitations: no limitations HENGA Head: Yes normocephalic and Yes atraumatic Ears: external ears normal General nose exam: Normal external nose present Face and sinus: Yes face symmetric Mouth: oropharynx normal and moist mucous membranes Throat: Yes uvula midline Eyes Pupils: Equal, round and reactive pupils present Neck Neck: Yes normal visual inspection and Yes supple Resp Effort & Inspection: normal respiratory effort and able to speak in complete sentences Auscultation: clear to auscultation bilaterally Cardio Rate: regular rate Rhythm: regular rhythm Heart sounds: S1 normal heart sound present and S2 normal heart sound present GI Other: Rectal exam chaperoned by RAFI Laura. Inspection: Yes normal to inspection Palpation (GI): Soft to palpation, nontender, no guarding and No Rebound t enderness present Auscultation: normoactive bowel sounds Rectal Exam - Female: visual inspection normal, normal sphincter tone, No External hemorrhoid(s) present, Internal hemorrhoid(s) present and No tenderness General: Yes no CVA tenderness Back/Spine/Pelvis Back: no CVA tenderness Skin General skin exam: elasticity normal and turgor normal Neuro General: oriented to person, oriented to place, oriented to time, patient oriented x3, moves all extremities, no focal motor deficits and CN's II-XI intact bilaterally Cranial nerves: Yes Equal, round and reactive pupils present Cognition (Neuro): normal cognition Extrem General: Yes full ROM, Yes no pedal edema and Yes no calf tenderness Psych Mental Status: mental status grossly normal Affect: normal affect Thought process: Normal thought process present Medical Decision Making Medical Decision Making [facility] Narrative: Patient is a 33-year-old female presenting the emergency department with complaint of bright red rectal bleeding as well as dysuria and urinary frequency. On exam patient is awake, A+Ox3, VS WNL, afebrile, normal neurological exam without focal deficits, abdomen soft and nontender, no CVA tenderness, no external hemorrhoids noted on exam, palpable internal hemorrhoid, no active bleeding on exam. Given reported symptoms and physical exam findings, initial differential includes hemorrhoids, UTI, lower GI bleed. Labs notable for no anemia, no leukocytosis. UA notable for 2+ leukocytes, 11-20 WBCs. Will treat patient for UTI at this time with nitrofurantoin as she is symptomatic. Will also prescribe topical treatment for hemorrhoids. All results discussed and all questions answered. Return precautions discussed at bedside. Patient verbalized understanding of and agreement with plan. Differential Diagnosis Differential Diagnoses: The differential diagnosis associated with the presentation includes As per [facility]. Lab Data [facility] Lab Attestation statement: I reviewed the patient's lab results. As per [facility]. 07/08/23 15:40 07/08/23 15:40 Labs: Lab Results 07/08/23 07/08/23 07/08/23 Range/Units 15:40 15:40 15:41 WBC 7.6 (4.8-10.8) X10*3/uL RBC 4.84 (4.20-5.50) X10*6/uL Hgb 13.6 (12.0-16.0) g/dl Hct 41.7 (37.0-47.0) % MCV 86.2 (80.0-98.0) fL MCH 28.1 (27.0-33.0) pg MCHC 32.6 (31.0-35.0) g/dl RDW 12.7 (11.0-16.0) % Plt Count 426 H (160-400) X10*3/uL MPV 9.0 L (9.4-12.3) fL Immature Gran % (Auto) 0.1 (0.0-0.4) % Neut % (Auto) 64.7 (45-73) % Lymph % (Auto) 26.1 (20-40) % Winston % (Auto) 6.2 (2-11) % Eos % (Auto) 2.5 (0-4) % Baso % (Auto) 0.4 (0-2) % Lymph # (Auto) 2.0 (1.2-4.9) X10*3/uL Winston # (Auto) 0.5 (0.1-1.2) X10*3/uL Eos # (Auto) 0.2 (0.0-0.4) X10*3/uL Baso # (Auto) 0.0 (0.0-0.2) X10*3/uL Abs Immat Gran (auto) 0.01 (0.00-0.03) X10*3/uL Absolute Neuts (auto) 4.9 (2.0-8.3) x10*3/uL Absolute Nucleated RBC 0.000 (0.0-0.012) X10*3/uL Nucleated RBC % (auto) 0.0 (0.0-0.2) /100WBC Sodium 138 (135-145) mmol/L Potassium 4.2 (3.3-5.1) mmol/L Chloride 107 (96-108) mmol/L Carbon Dioxide 24 (22-29) mmol/L Anion Gap 11 L (12-20) BUN 10 (9-16) mg/dL Creatinine 0.75 (0.5-1.4) mg/dL Estim Creat Clear Calc 87.8 Estimated GFR > 60 Random Glucose 116 H (60-115) mg/dL Calcium 9.7 (8.4-10.2) mg/dL Total Bilirubin 0.5 (0.0-1.0) mg/dL AST 15 (5-31) U/L ALT 7 (0-31) U/L Alkaline Phosphatase 70 (39-117) U/L Total Protein 7.9 (6.5-8.0) g/dL Albumin 4.2 (3.5-5.0) g/dL Urine Color Yellow Urine Appearance Clear Urine pH 6.0 (5.0-9.0) Ur Specific Dow 1.020 (1.005-1.025) Urine Protein Negative (Neg-Trace) mg/dL Urine Glucose (UA) Negative (Negative) mg/dL Urine Ketones Negative (Negative) mg/dL Urine Blood Small (1+) H (Negative) Urine Nitrite Negative (Negative) Ur Leukocyte Esterase Moderate (2+) H (Negative) Urine RBC 3-5 H (0-2) /HPF Urine WBC 11-20 H (0-5) /HPF Ur Squamous Epith Cells 0-2 (0-2) /HPF Urine Bacteria None Seen (None Seen) Hyaline Casts 0-2 (0-2) /LPF Urine Test (NEGATIVE) 07/08/23 Range/Units 15:41 WBC (4.8-10.8) X10*3/uL RBC (4.20-5.50) X10*6/uL Hgb (12.0-16.0) g/dl Hct (37.0-47.0) % MCV (80.0-98.0) fL MCH (27.0-33.0) pg MCHC (31.0-35.0) g/dl RDW (11.0-16.0) % Plt Count (160-400) X10*3/uL MPV (9.4-12.3) fL Immature Gran % (Auto) (0.0-0.4) % Neut % (Auto) (45-73) % Lymph % (Auto) (20-40) % Winston % (Auto) (2-11) % Eos % (Auto) (0-4) % Baso % (Auto) (0-2) % Lymph # (Auto) (1.2-4.9) X10*3/uL Winston # (Auto) (0.1-1.2) X10*3/uL Eos # (Auto) (0.0-0.4) X10*3/uL Baso # (Auto) (0.0-0.2) X10*3/uL Abs Immat Gran (auto) (0.00-0.03) X10*3/uL Absolute Neuts (auto) (2.0-8.3) x10*3/uL Absolute Nucleated RBC (0.0-0.012) X10*3/uL Nucleated RBC % (auto) (0.0-0.2) /100WBC Sodium (135-145) mmol/L Potassium (3.3-5.1) mmol/L Chloride (96-108) mmol/L Carbon Dioxide (22-29) mmol/L Anion Gap (12-20) BUN (9-16) mg/dL Creatinine (0.5-1.4) mg/dL Estim Creat Clear Calc Estimated GFR Random Glucose (60-115) mg/dL Calcium (8.4-10.2) mg/dL Total Bilirubin (0.0-1.0) mg/dL AST (5-31) U/L ALT (0-31) U/L Alkaline Phosphatase (39-117) U/L Total Protein (6.5-8.0) g/dL Albumin (3.5-5.0) g/dL Urine Color Urine Appearance Urine pH (5.0-9.0) Ur Specific Dow (1.005-1.025) Urine Protein (Neg-Trace) mg/dL Urine Glucose (UA) (Negative) mg/dL Urine Ketones (Negative) mg/dL Urine Blood (Negative) Urine Nitrite (Negative) Ur Leukocyte Esterase (Negative) Urine RBC (0-2) /HPF Urine WBC (0-5) /HPF Ur Squamous Epith Cells (0-2) /HPF Urine Bacteria (None Seen) Hyaline Casts (0-2) /LPF Urine Test NEGATIVE (NEGATIVE) External Record Review External record reviewed: Inpatient record, Office record and Outpatient record Prescription Management I considered prescription management with: Antibiotic Discharge Plan Discharge Clinical Impression: UTI (urinary tract infection), Internal hemorrhoid Patient Disposition: Home, Self-Care Instructions: Hemorrhoids (DC), Urinary Tract Infection in Women (DC) Additional Instructions: You have been evaluated in the emergency department today for your urinary symptoms as well as rectal bleeding. Your evaluation, including urinalysis, suggests that your symptoms are due to urinary tract infection. Your exam suggests that your rectal bleeding is due to hemorrhoids. Please take your prescribed antibiotics for the full course of medication as directed. You are being prescribed a cream for your hemorrhoids. Please follow-up with your primary care provider within 2 days. Return to the emergency department if you experience fevers 100.4? F or greater, worsening or uncontrolled pain, vomiting, flank pain, worsening rectal bleeding, lightheadedness, pass out, chest pain, shortness of breath, or for any other concerning symptoms. Prescriptions: New nitrofurantoin macrocrystal 100 mg capsule 100 mg PO BID 5 Days Qty: 10 0RF Rx Instructions: must administer with a meal/food oqfiujbsx-rtsjxuvnyhvylw-cnmo 3-2.5 % (7 gram) kit 1 appl HI BEDTIME Qty: 1 0RF lidocaine HCl-hydrocortison ac 3-0.5 % cream 1 appl HI BID Qty: 98 0RF No Action terconazole 0.8 % cream 1 appful vaginal BEDTIME 3 Days Qty: 20 0RF metronidazole 500 mg tablet 500 mg PO BID 7 Days Qty: 14 0RF azithromycin 500 mg tablet 1,000 mg PO ONCE Qty: 2 0RF tramadol 10 mg tablet Patient Comments: pt ran out of the tramadol cyclobenzaprine 10 mg tablet 10 mg PO TID PRN (Reason: muscle spasm) Qty: 20 0RF ibuprofen 800 mg tablet 800 mg PO Q8H PRN (Reason: pain) Qty: 30 0RF cephalexin 500 mg capsule 500 mg PO QID Qty: 28 0RF doxycycline monohydrate 100 mg capsule 100 mg PO BID Qty: 14 0RF penicillin V potassium 500 mg tablet 500 mg PO BID 10 Days Qty: 20 0RF naproxen 500 mg tablet 500 mg PO BID 7 Days Qty: 14 0RF fluconazole [Diflucan] 150 mg tablet 150 mg PO QWEEK Qty: 2 0RF Rx Instructions: Take one today and one with the last antibiotic. cefuroxime axetil 250 mg tablet 250 mg PO Q12H Qty: 14 0RF nitrofurantoin monohyd/m-cryst [Macrobid] 100 mg capsule 100 mg PO BID 5 Days Qty: 10 0RF terconazole 0.8 % cream 1 appful vaginal BEDTIME 3 Days Qty: 20 0RF
== END 2023-07-08 17:56 | disposition home or self-care (01) ==
PROVIDERS: Emergency Provider Internal Medicine; PCP Internal Medicine
DX: N39.0 Urinary tract infection, site not specified (principal); K92.1 Melena; K64.8 Other hemorrhoids; Z79.899 Other long term (current) drug therapy
CPT/HCPCS: 36415; 80053; 81001; 81025; 85025; 87086; 99283

== ENCOUNTER 2023-09-03 11:35 | Emergency (ER) | payer OTHER, SELFPAY ==
[2023-09-03 11:44] VITALS: BP 142/86; PULSE 130; RESP 20; TEMP 36.9; O2SAT 95; BMI 15.9
--- NOTE | 2023-09-03 11:47 | ECG_ITS ---
Test Reason : tachycardia Blood Pressure : / mmHG Vent. Rate : 099 BPM Atrial Rate : 099 BPM P-R Int : 150 ms QRS Dur : 078 ms QT Int : 348 ms P-R-T Axes : 077 073 052 degrees QTc Int : 446 ms Normal sinus rhythm Biatrial enlargement RSR' or QR pattern in V1 suggests right ventricular conduction delay Abnormal ECG When compared with ECG of 30-NOV-2018 12:18, Vent. rate has increased BY 34 BPM Referred By: Kamran Ramos Electronically Signed By:SAMUEL JOHNSON MD
--- NOTE | 2023-09-03 11:49 | ED_ITS ---
HPI - General Adult General Chief complaint: Dental/Oral Stated complaint: dental pain Time Seen by Provider: 09/03/23 12:46 Source: patient Mode of arrival: ambulatory Limitations: no limitations History of Present Illness HPI narrative: 33 yold female presents to the ED for right upper molar dental pain and would like to have a test. patient admits to poor dental hygeine and bad teeth. Patient states no facial swelling, drooling, neck swelling, change in voice, chest pain, or shortness of breath Related Data Home Medications Medication Instructions Recorded Confirmed tramadol 09/14/20 levonorgestrel 21 mcg/24 hours (8 intrauterine 09/03/23 yrs) 52 mg intrauterine device (Mirena) Previous Rx's Medication Instructions Recorded cyclobenzaprine 10 mg tablet 10 mg PO TID PRN muscle spasm #20 09/14/20 tabs ibuprofen 800 mg tablet 800 mg PO Q8H PRN pain #30 tabs 09/14/20 cephalexin 500 mg capsule 500 mg PO QID #28 caps 02/07/21 doxycycline monohydrate 100 mg 100 mg PO BID #14 caps 02/07/21 capsule terconazole 0.8 % vaginal cream 1 appful vaginal BEDTIME 3 days 02/18/21 #20 grams terconazole 0.8 % vaginal cream 1 appful vaginal BEDTIME 3 days 12/14/21 #20 grams azithromycin 500 mg tablet 1,000 mg (2 x 500 mg) PO ONCE #2 12/16/21 tabs naproxen 500 mg tablet 500 mg PO BID 7 days #14 tabs 08/15/22 cefuroxime axetil 250 mg tablet 250 mg PO Q12H #14 tabs 09/11/22 lidocaine 3 %-hydrocortisone 0.5 % 1 appl SD BID #98 grams 07/08/23 rectal cream dhjlqojdv-cvfpjebmprilzu-xuoh vera 1 appl SD BEDTIME #1 ea 07/08/23 3 %-2.5 % (7 gram) rectal kit cefuroxime axetil 250 mg tablet 250 mg PO Q12H 7 days #14 tabs 09/03/23 Allergies Allergy/AdvReac Type Severity Reaction Status Date / Time amoxicillin [AMOXICILLIN] Allergy Mild GIVES ME Verified 09/03/23 14:46 ANOTHER INFECTION Review of Systems 2 Review of Systems: dental pain Yes all other systems are reviewed and are negative PMFSH Past Medical History Medical History Sciatica Social History Social History Alcohol intake: never Substance Use Type: Marijuana Physical Exam ED Vital Signs: Vital Signs - 24 hr 09/03/23 11:44 Temperature 98.5 F Pulse Rate 130 H Respiratory Rate 20 Blood Pressure 142/86 H Pulse Oximetry 95 Oxygen Delivery Method Room Air BMI result Body Mass Index 15.9 Const General: cooperative, healthy appearing, comfortable, no acute distress, well developed, alert and awake Orientation/consciousness: oriented to person, oriented to place, oriented to time and patient oriented x3 HENMT Other: negative for facial swelling, neck swelling, drooling, change in voice, or trismus Head: Yes normal to inspection, Yes No palpable skull fracture present, Yes normocephalic and Yes atraumatic Teeth image: 2 1. tooth are cracked and decaying. mild pus collection. negative for gum swelling/erythema. negative trismus Throat: Yes posterior oropharynx normal, Yes tonsils normal and Yes uvula midline Eyes General: appearance normal, both eyes and all related structures Neck Neck: Yes normal visual inspection, Yes full ROM, Yes no lymphadenopathy, Yes no meningeal signs, Yes trachea midline, No supple, No anterior neck swelling and No tender Chest Chest palpation & inspection: normal inspection of the chest and normal palpation of entire chest wall Resp Effort & Inspection: normal respiratory effort and able to speak in complete sentences Auscultation: clear to auscultation bilaterally Cardio Jugular venous distension: no JVD Heart sounds: S1 normal heart sound present and S2 normal heart sound present GI Inspection: Yes normal to inspection Palpation (GI): Soft to palpation, not firm, nontender, no guarding and not rigid General: Yes no CVA tenderness Back/Spine/Pelvis Back: no CVA tenderness and back tenderness Skin General skin exam: no rashes or lesions noted, elasticity normal and turgor normal Neuro General: oriented to person, oriented to place, oriented to time, patient oriented x3, gait normal, tone normal, moves all extremities, Normal light touch and pain sensation, no meningeal signs and no focal motor deficits Extrem General: Yes normal to inspection and Yes full ROM Psych Appearance: grossly normal, well kempt and not disheveled Course Course Course Narrative: RME 33 yold female presents to the ED left upper molar pain. patient has known poor dental hygeine and tooth decay. patient secondary inquiry is she would like a test. patient is tachycardic. Patient does have history of anxiety. WIll do baseline EKG and Ur preg. most likely patient will need oral antibiotics. Medical Decision Making Medical Decision Making [facility] Narrative: 33 yold female presents to the ED for left upper molar dental pain and wants to check to see if she is . UA shows UTI. is negative. discharged with antiibitiocs. negative for signs of peritonsillar abscess, ludgwig angina, gum abscuess, kidney stones, or pyelonephrititis Differential Diagnosis Differential Diagnoses: The differential diagnosis associated with the presentation includes (dental abscess, peritonsillar absccess, eulalia angina, gum abscess, kidney stones, or pyelonphritits) Lab Data MDM Lab Attestation statement: I reviewed the patient's lab results. Labs: Lab Results 09/03/23 Range/Units 11:59 Urine Color Yellow Urine Appearance Clear Urine pH 6.0 (5.0-9.0) Ur Specific [place] >= 1.030 H (1.005-1.025) Urine Protein 30 (1+) H (Neg-Trace) mg/dL Urine Glucose (UA) Negative (Negative) mg/dL Urine Ketones 80 (Negative) mg/dL Urine Blood Small (1+) H (Negative) Urine Nitrite Negative (Negative) Ur Leukocyte Esterase Small (1+) H (Negative) Urine RBC 11-20 H (0-2) /HPF Urine WBC 11-20 H (0-5) /HPF Ur Squamous Epith Cells 6-10 (0-2) /HPF Urine Bacteria Trace (None Seen) Hyaline Casts 0-2 (0-2) /LPF Urine Test NEGATIVE (NEGATIVE) External Record Review External record reviewed: Other (Prior visits) Prescription Management I considered prescription management with: Antibiotic Discharge Plan Discharge Clinical Impression: Toothache, UTI (urinary tract infection) Patient Disposition: Home, Self-Care Instructions: Urinary Tract Infection in Women (DC), Toothache (ED) Additional Instructions: Return to the ED immediately for any facial swelling, neck swelling, drooling, change in voice, worsening dental pain, abdominal pain, nausea, vomiting, dysuria, hematuria, flank pain, fever, chills, or any other concerning symptoms. Recommend follow-up with your primary care provider and dentist Prescriptions: New cefuroxime axetil 250 mg tablet 250 mg PO Q12H 7 Days Qty: 14 0RF No Action terconazole 0.8 % cream 1 appful vaginal BEDTIME 3 Days Qty: 20 0RF azithromycin 500 mg tablet 1,000 mg PO ONCE Qty: 2 0RF tramadol 10 mg tablet Patient Comments: pt ran out of the tramadol cyclobenzaprine 10 mg tablet 10 mg PO TID PRN (Reason: muscle spasm) Qty: 20 0RF ibuprofen 800 mg tablet 800 mg PO Q8H PRN (Reason: pain) Qty: 30 0RF cephalexin 500 mg capsule 500 mg PO QID Qty: 28 0RF doxycycline monohydrate 100 mg capsule 100 mg PO BID Qty: 14 0RF naproxen 500 mg tablet 500 mg PO BID 7 Days Qty: 14 0RF cefuroxime axetil 250 mg tablet 250 mg PO Q12H Qty: 14 0RF bbtrpiwal-jtcwqjgldcypov-dsgi 3-2.5 % (7 gram) kit 1 appl SD BEDTIME Qty: 1 0RF lidocaine HCl-hydrocortison ac 3-0.5 % cream 1 appl SD BID Qty: 98 0RF terconazole 0.8 % cream 1 appful vaginal BEDTIME 3 Days Qty: 20 0RF Mirena 21 mcg/24 hours (8 yrs) 52 mg intrauterine device intrauterine Interventions: ED Discharge Assessment Last Done: 09/03/23 13:06 Discharge Date/Time: 09/03/23 13:06 Print Language: Turkmen
[2023-09-03 12:31] LABS: Appearance Urine Clear; Color Urine Yellow; Glucose Urine UA Negative (Negative); Leukocyte Esterase Urine Small (1+) (Negative); Nitrite Urine Negative (Negative); Specific Gravity - Urine >= 1.030 (1.005-1.025); UMIC TRIGGER UACC YES; Urine Blood Small (1+) (Negative); Urine Ketones 80 mg/dL (Negative); Urine Protein 30 (1+) mg/dL (Neg-Trace)
[2023-09-03 12:40] LABS: UPreg QC Valid YES; Urine Pregnancy NEGATIVE (NEGATIVE)
[2023-09-03 12:42] LABS: Bacteria Urine Trace (None Seen); Hyaline Casts Urine 0-2 /LPF (0-2); UACC Culture Trigger YES
== END 2023-09-03 13:06 | disposition home or self-care (01) ==
PROVIDERS: Physician Assistant; Emergency Provider Emergency Medicine; PCP Internal Medicine
DX: K08.89 Other specified disorders of teeth and supporting structures (principal); N39.0 Urinary tract infection, site not specified; K03.81 Cracked tooth; R00.0 Tachycardia, unspecified; Z30.432 Encounter for removal of intrauterine contraceptive device; Z79.899 Other long term (current) drug therapy
CPT/HCPCS: 58301; 81001; 81025; 87086; 93005; 99283

== ENCOUNTER 2023-09-03 14:33 | Outpatient (AMB) | payer OTHER, SELFPAY ==
[2023-09-03 14:45] VITALS: BP 110/68; BMI 15.8
--- NOTE | 2023-09-03 14:45 | MHC.OFFVIS ---
Intake Vital Signs 09/03/23 14:45 Height 5 ft 6 in Weight 98 lb BMI 15.8 BP 110/68 Intake Visit Reasons: IUD removal consult Career Development Director Required: No Information Interpreted: non-clinical & clinical Network Infrastructure Architect: Network Infrastructure Architect Present (Sandra) Allergies amoxicillin [AMOXICILLIN] Allergy (Mild, Verified 09/03/23 14:46) GIVES ME ANOTHER INFECTION Is last menstrual period known: No Post menopausal: No Patient : No HPI HPI Comments History of Present Illness Details Presenting requesting IUD removal, the patient is interested in getting . [facility] Medical History Sciatica Social History Alcohol intake: never Substance Use Type: Marijuana Patient : No Female Reproductive History Menstrual Age of Menarche: 12 control method: progestin IUCD Date of last pap smear: 03/13/19 (negative) Review of Systems Const All systems reviewed & are unremarkable except as noted in HPI and below Physical Exam Vital Signs: Last Vital Signs BP 110/68 09/03/23 14:45 BMI result Body Mass Index 15.8 General: Yes no CVA tenderness External Female Exam: normal external appearance and normal appearance of the urethra Speculum Exam - Vagina: normal appearance of the vagina, normal palpation, no lesions and no masses Speculum Exam - Cervix: normal appearance of the cervix, normal palpation, no lesions, no masses, nontender and Other cervical findings present (IUD thread in place) Bimanual exam- vagina & uterus: normal bimanual exam, normal palpation, uterine size normal, normal palpation, uterine shape normal, No Cervical tenderness present and non-tender Bimanual Exam- Adnexa, other: normal adnexae Back/Spine/Pelvis Back: no CVA tenderness Office Procedures IUD Insert/Removal Details Details: Counseling/Consent: After discussing with the patient the risks of the procedure including bleeding, infection, scar tissue formation, , possible injury to blood vessels or nerves, chronic arm pain, blood transfusion, and irregular unpredictable bleeding Alternative options were discussed with the patient including but not limited: Do nothing. The patient signed the consent and agreed with the plan; all questions answered. Urine test was done in the office and was negative Preop dx: Requesting IUD removal Op: IUD removal Post op dx: same EBL= 10 cc Procedure: The patient was put in the dorsal lithotomy position a speculum was inserted in the vagina the IUD thread identified. Using a Fabiola clamp the thread was grasped and the IUD pulled out with no complications. The patient tolerated the procedure well and was advised to use a different method for contraception. Discharge instructions: Instructions were given to the pt to call if temp>100.4, abdominal pain heavy vaginal bleeding, n/v occur. The patient verbalized understanding and all questions answered. This note was generated with a voice recognition program. Some errors may have been overlooked during the review of this note. Sometimes these errors may affect the content or meaning of a given sentence. 00685-RMK Removal Procedure code (CPT) selection complete Results AMB Test Urine AMB Test Urine Negative Last Edit by HOMER Randolph on 09/03/23 14:54 Results Reviewed Results Reviewed: Laboratory Last Values [facility]st Clinic Negative 09/03/23 14:54 Assessment & Plan Assessment & Plan (1) Encounter for IUD removal: Code(s): Z30.432 - Encounter for removal of intrauterine contraceptive device Plan: IUD removed, see procedure Orders: Orders AMB HCG Urine Test Today Z32.02 - Encounter for test, result negative Coding Level of Care Code Procedure Only Diagnoses Encounter for IUD removal Z30.432 CPT Codes Details - CPT: 36305-LMO Removal ([id number])
== END 2023-09-03 15:04 | disposition home or self-care (01) ==
PROVIDERS: PCP Internal Medicine; Visit Provider Obstetrics & Gynecology
DX: Z30.432 Encounter for removal of intrauterine contraceptive device (principal); Z32.02 Encounter for pregnancy test, result negative
CPT/HCPCS: 58301

== ENCOUNTER 2024-10-08 14:24 | Outpatient (REF) | payer OTHER, SELFPAY | END 2024-10-08 14:25 | disposition home or self-care (01) | LOC: HO.LAB 14:24 | PROVIDERS: PCP Internal Medicine; Visit Provider Advanced Practice Midwife | DX: L29.2 Pruritus vulvae (principal); Z20.2 Contact with and (suspected) exposure to infections with a predominantly sexual mode of transmission; R33.9 Retention of urine, unspecified | CPT/HCPCS: 99212 ==

== ENCOUNTER 2024-10-08 14:24 | Outpatient (AMB) | payer OTHER, SELFPAY ==
--- NOTE | 2024-10-08 14:29 | A.OFFVIS_ITS ---
Vital Signs 10/08/24 14:33 BP 96/68 Intake Visit Reasons: vag discomfort Director New Product: Director New Product Present (Kyung) Accompanied by: Self / Same As Patient Allergies amoxicillin [AMOXICILLIN] Allergy (Mild, Verified 10/08/24 14:29) GIVES ME ANOTHER INFECTION HPI Comments Details: Patient is here today for vaginal itching and reports that her bladder does not always seemed to be emptying completely. She denies any pelvic pain, dysuria, frequency of urination, odor, discharge. She is sexually active and not using control or condoms, not concerned about an unplanned . She would like all STD testing today. Reports her period had started today. UPT is negative today. [facility] Medical History Sciatica Social History Alcohol intake: never Substance Use Type: Marijuana Female Reproductive History Menstrual Age of Menarche: 12 Review of Systems Const All systems reviewed & are unremarkable except as noted in HPI and below Physical Exam Vital Signs: Last Vital Signs BP 96/68 10/08/24 14:33 Const General: cooperative, healthy appearing and no acute distress Orientation/consciousness: patient oriented x3 GI Inspection: Yes normal to inspection Palpation (GI): Soft to palpation and Other GI palpation findings present (Nontender) Rectal Exam - Female: visual inspection normal General: Yes bladder normal to palpation External Female Exam: normal appearance of the urethra Speculum Exam - Vagina: normal appearance of the vagina, normal palpation, normal vaginal discharge and vaginal bleeding Speculum Exam - Cervix: normal appearance of the cervix and normal palpation Bimanual exam- vagina & uterus: normal bimanual exam, normal palpation, uterine size normal, bladder normal to palpation, normal palpation, uterine shape normal and non-tender Bimanual Exam- Adnexa, other: normal adnexae OB/external & speculum: vaginal bleeding Neuro General: patient oriented x3 Assessment & Plan Assessment & Plan (1) Vulvar itching: Code(s): L29.2 - Pruritus vulvae (2) Possible exposure to STD: Code(s): Z20.2 - Contact with and (suspected) exposure to infections with a predominantly sexual mode of transmission (3) Incomplete bladder emptying: Code(s): R33.9 - Retention of urine, unspecified Plan Discussed: Safe sex use of condoms, consider control. GC chlamydia and BV panel obtained. Lab work for STI screening ordered. 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 All of her questions and concerns were addressed to the best of my ability and shared decision making. She is agreeable to the plan of care. This note is constructed using voice recognition software. While every effort has been made to ensure accuracy, fur repair inspector errors may have been included. Orders: Orders HIV Ab/Ag Today Z20.2 - Contact with and (suspected) exposure to infections with a predominantly sexual mode of transmission Hepatitis C Antibody Reflex Today Z20.2 - Contact with and (suspected) exposure to infections with a predominantly sexual mode of transmission Hepatitis B Core Antibody Today Z20.2 - Contact with and (suspected) exposure to infections with a predominantly sexual mode of transmission Syphilis Screen Today Z20.2 - Contact with and (suspected) exposure to infections with a predominantly sexual mode of transmission Coding Level of Care Code Est Pt Level 3 (75902) Diagnoses Vulvar itching L29.2 Possible exposure to STD Z20.2 Incomplete bladder emptying R33.9
[2024-10-08 14:33] VITALS: BP 96/68
== END 2024-10-08 14:49 | disposition home or self-care (01) ==
LOC: HO.HWS 14:24
PROVIDERS: PCP Internal Medicine; Visit Provider Advanced Practice Midwife
DX: L29.2 Pruritus vulvae (principal); Z20.2 Contact with and (suspected) exposure to infections with a predominantly sexual mode of transmission; R33.9 Retention of urine, unspecified
CPT/HCPCS: 99213

== ENCOUNTER 2024-10-08 14:42 | Outpatient (REF) | payer OTHER, SELFPAY ==
[2024-10-09 03:54] LABS: Syphilis Screen Nonreactive (Nonreactive)
[2024-10-09 04:36] LABS: HIV AB/AG Nonreactive (Nonreactive); HIV Num 1 0.14 S/CO (0.00-0.99); Hepatitis B Core Antibody Nonreactive (Nonreactive); ~HepC Num1 0.13 S/CO (0.00-0.79); ~Hepatitis C Antibody Nonreactive (Nonreactive)
[2024-10-09 07:46] LABS: CT PCR NOT DETECTED (Not Detect.); NG PCR NOT DETECTED (Not Detect.)
[2024-10-09 11:43] LABS: Bacterial Vaginosis PCR POSITIVE (Negative); Candida Group PCR DETECTED (Not Detect); Candida glab krusei PCR NOT DETECTED (Not Detect); Trichomonas vaginalis PCR DETECTED (Not Detect)
== END 2024-10-08 14:43 | disposition home or self-care (01) ==
LOC: HO.LNP 14:42
PROVIDERS: Visit Provider Advanced Practice Midwife
DX: Z20.2 Contact with and (suspected) exposure to infections with a predominantly sexual mode of transmission (principal); Z11.3 Encounter for screening for infections with a predominantly sexual mode of transmission; B37.31 Acute candidiasis of vulva and vagina
CPT/HCPCS: 0352U; 86704; 86780; 86803; 87389; 87491; 87591

== ENCOUNTER 2024-12-04 10:30 | Outpatient (AMB) | payer OTHER, SELFPAY ==
--- NOTE | 2024-12-04 10:41 | A.OFFVIS_ITS ---
Intake Visit Reasons: ZACH follow up Intake Note: pt c/o burning with urination after intercourse Allergies amoxicillin [AMOXICILLIN] Allergy (Mild, Verified 12/04/24 10:41) GIVES ME ANOTHER INFECTION HPI Comments Details: Patient is here today for test of cure for Trichomonas. She took all but 1 dose of her medication, she reports partner has been treated. She denies any pelvic pain, urinary symptoms, discharge, or odor. She reports some irritation with recent use of a new condom brand but has gone back to her previous brand. She gets routinely checked at [facility] for HIV screening, and reports she is up-to-date but would like to have other testing completed here today. [facility] Medical History [facility] Social History Alcohol intake: never Substance Use Type: Marijuana Female Reproductive History Menstrual Age of Menarche: 12 History of STI: Yes (10/08/24 +Trich) Review of Systems Const All systems reviewed & are unremarkable except as noted in HPI and below Physical Exam Const General: cooperative, healthy appearing and no acute distress Orientation/consciousness: patient oriented x3 GI Inspection: Yes normal to inspection Palpation (GI): Soft to palpation and Other GI palpation findings present (Nontender) Rectal Exam - Female: visual inspection normal General: Yes bladder normal to palpation External Female Exam: normal appearance of the urethra Speculum Exam - Vagina: normal appearance of the vagina, normal palpation and normal vaginal discharge Speculum Exam - Cervix: normal appearance of the cervix and normal palpation Bimanual exam- vagina & uterus: normal bimanual exam, normal palpation, uterine size normal, bladder normal to palpation, normal palpation, uterine shape normal and non-tender Bimanual Exam- Adnexa, other: normal adnexae Neuro General: patient oriented x3 Results AMB Urinalysis, Automated UA Leukoctes 0 Dao/uL Last Edit by HOMER Cardenas on 12/04/24 10:55 UA Nitrite Negative Last Edit by HOMER Cardenas on 12/04/24 10:55 UA Urobilinogen 0 mg/dL Last Edit by HOMER Cardenas on 12/04/24 10:5 5 UA Protein 0.5 mg/dL Last Edit by HOMER Cardenas on 12/04/24 10:55 UA pH 6.5 Last Edit by HOMER Cardenas on 12/04/24 10:55 UA Blood 0.5 Frank/uL Last Edit by HOMER Cardenas on 12/04/24 10:55 UA Specific [place] 1.015 Last Edit by HOMER Cardenas on 12/04/24 10:55 UA Ketone Negative Last Edit by HOMER Cardenas on 12/04/24 10:55 UA Bilirubin 0 mg/dL Last Edit by Elli Molina Enrico on 12/04/24 10:55 UA Glucose 0 mg/dL Last Edit by HOMER Cardenas on 12/04/24 10:55 AMB Test Urine AMB Test Urine Negative Last Edit by HOMER Cardenas on 12/04/24 10:55 Results Reviewed Results Reviewed: Laboratory Last Values Urine pH (Auto) 6.5 12/04/24 10:53 Specific [place] (Auto) 1.015 12/04/24 10:53 Urine Protein (Auto) 0.5 mg/dL 12/04/24 10:53 Glucose (UA)(Auto) 0 mg/dL 12/04/24 10:53 Urine Ketones (Auto) Negative 12/04/24 10:53 Urine Blood (Auto) 0.5 Frank/uL 12/04/24 10:53 Urine Nitrite (Auto) Negative 12/04/24 10:53 Urine Bilirubin (Auto) 0 mg/dL 12/04/24 10:53 Urine Urobilinogen (Auto) 0 mg/dL 12/04/24 10:53 Leukocyte Esterase (Auto) 0 Dao/uL 12/04/24 10:53 Tst Clinic Negative 12/04/24 10:53 Assessment & Plan Assessment & Plan (1) Trichomonas contact, treated: Code(s): Z20.2 - Contact with and (suspected) exposure to infections with a predominantly sexual mode of transmission (2) Possible exposure to STD: Code(s): Z20.2 - Contact with and (suspected) exposure to infections with a predominantly sexual mode of transmission Plan Discussed: BV panel and GC chlamydia obtained, plan labs today for hep C, hep B, and syphilis. Continue use of condoms for prevention of STIs. Next visit scheduled for 02/05/2025 for annual exam. Await test results for plan of care. The patient expressed understanding and agreement with the plan of care. All of her questions and concerns were addressed to the best of my ability. This note is constructed using voice recognition software. While every effort has been made to ensure accuracy, tester operator helper errors may have been included. Orders: Orders AMB Urinalysis Automated Today R30.0 - Dysuria Bacterial Vaginosis Panel Today A59.01 - Trichomonal vulvovaginitis, Z20.2 - Contact with and (suspected) exposure to infections with a predominantly sexual mode of transmission CT NG by PCR Today Z20.2 - Contact with and (suspected) exposure to infections with a predominantly sexual mode of transmission Hepatitis C Antibody Reflex Today Z20.2 - Contact with and (suspected) exposure to infections with a predominantly sexual mode of transmission Syphilis Screen Today Z20.2 - Contact with and (suspected) exposure to infections with a predominantly sexual mode of transmission AMB HCG Urine Test Today Z32.02 - Encounter for test, result negative Hepatitis B Core Antibody Today Z20.2 - Contact with and (suspected) exposure to infections with a predominantly sexual mode of transmission Coding Level of Care Code Est Pt Level 3 (07343) Diagnoses Trichomonas contact, treated Z20.2 Possible exposure to STD Z20.2
== END 2024-12-04 15:29 | disposition home or self-care (01) ==
LOC: HO.HWSW 10:30
PROVIDERS: PCP Internal Medicine; Visit Provider Advanced Practice Midwife
DX: Z20.2 Contact with and (suspected) exposure to infections with a predominantly sexual mode of transmission (principal); R30.0 Dysuria; Z32.02 Encounter for pregnancy test, result negative
CPT/HCPCS: 99213

== ENCOUNTER 2024-12-04 10:30 | Outpatient (REF) | payer OTHER, SELFPAY | END 2024-12-04 10:31 | disposition home or self-care (01) | LOC: HO.LAB 10:30 | PROVIDERS: PCP Internal Medicine; Visit Provider Advanced Practice Midwife | DX: A59.01 Trichomonal vulvovaginitis (principal); Z20.2 Contact with and (suspected) exposure to infections with a predominantly sexual mode of transmission | CPT/HCPCS: 81003; 81025; 81515; 86704; 86780; 86803; 87491; 87591; 99212 ==

== ENCOUNTER 2024-12-04 11:11 | Outpatient (REF) | payer OTHER, SELFPAY ==
[2024-12-04 12:53] LABS: Syphilis Screen Nonreactive (Nonreactive)
[2024-12-04 12:54] LABS: HBc Num1 0.09 S/CO (0.00-0.79); Hepatitis B Core Antibody Nonreactive (Nonreactive); ~HepC Num1 0.11 S/CO (0.00-0.79); ~Hepatitis C Antibody Nonreactive (Nonreactive)
[2024-12-05 09:08] LABS: CT PCR NOT DETECTED (Not Detect.); NG PCR NOT DETECTED (Not Detect.)
== END 2024-12-04 11:12 | disposition home or self-care (01) ==
LOC: HO.LNP 11:11
PROVIDERS: Visit Provider Advanced Practice Midwife
DX: Z20.2 Contact with and (suspected) exposure to infections with a predominantly sexual mode of transmission (principal)
CPT/HCPCS: 86704; 86780; 86803; 87491; 87591

== ENCOUNTER 2024-12-04 11:28 | Outpatient (REF) | payer OTHER, SELFPAY ==
[2024-12-05 09:07] LABS: Bacterial Vaginosis PCR NEGATIVE (Negative); Candida Group PCR NOT DETECTED (Not Detect); Candida glab krusei PCR NOT DETECTED (Not Detect); Trichomonas vaginalis PCR NOT DETECTED (Not Detect)
== END 2024-12-04 11:29 | disposition home or self-care (01) ==
LOC: HO.LAB 11:28
PROVIDERS: PCP Internal Medicine; Visit Provider Advanced Practice Midwife
DX: A59.01 Trichomonal vulvovaginitis (principal); Z20.2 Contact with and (suspected) exposure to infections with a predominantly sexual mode of transmission
CPT/HCPCS: 81515

== ENCOUNTER 2025-02-05 13:20 | Outpatient (REF) | payer OTHER, SELFPAY | END 2025-02-05 13:21 | disposition home or self-care (01) | LOC: HO.LAB 13:20 | PROVIDERS: PCP Internal Medicine; Visit Provider Advanced Practice Midwife | DX: Z01.419 Encounter for gynecological examination (general) (routine) without abnormal findings (principal); Z20.2 Contact with and (suspected) exposure to infections with a predominantly sexual mode of transmission; N93.9 Abnormal uterine and vaginal bleeding, unspecified | CPT/HCPCS: 99395; 99459 ==

== ENCOUNTER 2025-02-05 13:20 | Outpatient (AMB) | payer OTHER, SELFPAY ==
[2025-02-05 13:25] VITALS: BP 116/76; BMI 16.9
--- NOTE | 2025-02-05 13:25 | A.OFFVIS_ITS ---
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 Doing well with no freight broker concerns. Regular monthly menses x 3-6, HMB x 2. Currently is sexually active. She denies vaginal itching and irritation. STI screening offered; she accepts. Not on BC, not using condoms. Open to a future . Taking a vitamins. She tries to eat healthy and stays active with exercise. Denies family history of breast, ovarian or colon cancer. Last pap smear 2018, negative. [facility] Medical History (Updated 02/05/25 @ 13:41 by Patricia Fofana CNM) Abnormal uterine bleeding (AUB) Sciatica Surgical History H/O elbow surgery Social History Alcohol intake: never Substance Use Type: Marijuana Female Reproductive History Menstrual Age of Menarche: 12 Duration of menses: 3-5 days Date of last menstrual period: 01/28/25 Total pregnancies: 9 Full term: 4 Premature: 2 Number of Living Children: 4 Ab induced: 1 Ab spontaneous: 2 Date of last pap smear: 03/13/19 (neg pap and hpv) History of STI: Yes (10/08/24 +Trich) Review of Systems Const All systems reviewed & are unremarkable except as noted in HPI and below Reports as per HPI Eyes Reports no additional complaints ENT Reports no additional complaints Card Reports no additional complaints Resp Reports no additional complaints GI Reports as per HPI and Reports no additional complaints Reports as per HPI Musc Reports no additional complaints Skin/Breast Reports as per HPI Neuro Reports no additional complaints Psych Reports no additional complaints Endo Reports no additional complaints Bret/Lymph Reports no additional complaints Aller/Immun Reports no additional complaints Physical Exam Vital Signs: Last Vital Signs BP 116/76 02/05/25 13:25 BMI result Body Mass Index 16.9 Const General: cooperative, healthy appearing, no acute distress, well developed and alert Orientation/consciousness: patient oriented x3 HEENT Head: Yes normal to inspection Eyes General: appearance normal, both eyes and all related structures Neck Neck: Yes normal visual inspection Thyroid: Thyroid normal Chest Chest palpation & inspection: normal inspection of the chest and other (no puckering, dimpling, peau de orange, retraction, discharge, masses) Breast/axilla inspection: normal inspection of the breasts Breast/axilla palpation: normal palpation of the breasts Resp Effort & Inspection: normal respiratory effort GI Inspection: Yes normal to inspection Palpation (GI): Soft to palpation Rectal Exam - Female: deferred General: Yes bladder normal to palpation External Female Exam: normal external appearance and normal appearance of the urethra Speculum Exam - Vagina: normal appearance of the vagina, normal palpation and normal vaginal discharge Speculum Exam - Cervix: normal appearance of the cervix and normal palpation Bimanual exam- vagina & uterus: normal bimanual exam, normal palpation, uterine size normal, bladder normal to palpation, normal palpation and non-tender Bimanual Exam- Adnexa, other: no masses Skin General skin exam: no rashes or lesions noted Rashes: no rashes Neuro General: patient oriented x3 Cognition (Neuro): normal cognition Extrem General: Yes normal to inspection Psych Attitude: cooperative Thought process: Normal thought process present Assessment & Plan Assessment & Plan (1) Abnormal uterine bleeding (AUB): Code(s): N93.9 - Abnormal uterine and vaginal bleeding, unspecified Category: Medical Plan: Plan workup to include ultrasound CBC and TSH follow up pending test results in person. The patient expressed understanding and agreement with the plan of care. All of her questions and concerns were addressed to the best of my ability. (2) Encounter for well woman exam with routine gynecological exam: Code(s): Z01.419 - Encounter for gynecological examination (general) (routine) without abnormal findings Category: Medical Plan Discussed: Current recommendations for pap smears per ASCCP guidelines. Pap smear obtain ed. BV and GC and chlamydia panel obtained. Breast awareness and periodic breast exams. Maintain a healthy lifestyle including a well balanced diet and routine exercise. Continue with vitamins. Patient verbalizes understanding and agrees to the plan of care. She was given opportunity to ask questions and all questions were answered to the best of my ability. RTO in one year for annual freight broker examination. This note is constructed using voice recognition software. While every effort has been made to ensure accuracy, relief docking master errors may have been included. Orders: Orders Bacterial Vaginosis Panel Today N93.9 - Abnormal uterine and vaginal bleeding, unspecified, Z20.2 - Contact with and (suspected) exposure to infections with a predominantly sexual mode of transmission US pelvic and transvaginal Today N93.9 - Abnormal uterine and vaginal bleeding, unspecified Complete Blood Count no Diff Today N93.9 - Abnormal uterine and vaginal bleeding, unspecified Thyroid Stimulating Hormone Today N92.1 - Excessive and frequent menstruation with irregular cycle, N93.9 - Abnormal uterine and vaginal bleeding, unspecified CT NG by PCR Today N93.9 - Abnormal uterine and vaginal bleeding, unspecified, Z11.3 - Encounter for screening for infections with a predominantly sexual mode of transmission HPV High risk Today Z01.419 - Encounter for gynecological examination (general) (routine) without abnormal findings Pap Smear Today Z01.419 - Encounter for gynecological examination (general) (routine) without abnormal findings Coding Level of Care Code Est Pt Prev Care 18-39y(30128) Diagnoses Abnormal uterine bleeding (AUB) N93.9 Encounter for well woman exam with routine gynecological exam Z01.419
== END 2025-02-05 13:47 | disposition home or self-care (01) ==
LOC: HO.HWS 13:20
PROVIDERS: PCP Internal Medicine; Visit Provider Advanced Practice Midwife
DX: Z01.419 Encounter for gynecological examination (general) (routine) without abnormal findings (principal); N93.9 Abnormal uterine and vaginal bleeding, unspecified
CPT/HCPCS: 99395; 99459

== ENCOUNTER 2025-02-05 13:43 | Outpatient (REF) | payer OTHER, SELFPAY ==
[2025-02-05 15:13] LABS: Hemoglobin 12.2 g/dl (12.0-16.0); Mean Corpuscular Volume 84.9 fL (80.0-98.0); Mean Platelet Volume 9.4 fL (9.4-12.3); Platelet Count 346 X10*3/uL (160-400); Red Blood Count 4.36 X10*6/uL (4.20-5.50); Red Cell Distribution Width 11.9 % (11.0-16.0); White Blood Count 5.2 X10*3/uL (4.8-10.8)
[2025-02-05 16:09] LABS: Thyroid Stimulating Hormone 1.03 uIU/mL (0.32-4.0)
[2025-02-05 16:45] LABS: Bacterial Vaginosis PCR NEGATIVE (Negative); Candida Group PCR NOT DETECTED (Not Detect); Candida glab krusei PCR NOT DETECTED (Not Detect); Trichomonas vaginalis PCR NOT DETECTED (Not Detect)
[2025-02-05 17:16] LABS: CT PCR NOT DETECTED (Not Detect.); NG PCR NOT DETECTED (Not Detect.)
[2025-02-11 14:17] LABS: HPV Genotype 16 Positive (Negative); HPV Genotype 18 Negative (Negative); HPV High Risk Positive (Negative)
== END 2025-02-05 13:44 | disposition home or self-care (01) ==
LOC: HO.LNP 13:43
PROVIDERS: Visit Provider Advanced Practice Midwife
DX: Z01.419 Encounter for gynecological examination (general) (routine) without abnormal findings (principal); N92.1 Excessive and frequent menstruation with irregular cycle; N93.9 Abnormal uterine and vaginal bleeding, unspecified; Z11.3 Encounter for screening for infections with a predominantly sexual mode of transmission; Z20.2 Contact with and (suspected) exposure to infections with a predominantly sexual mode of transmission
CPT/HCPCS: 81515; 84443; 85027; 87491; 87591; 87626; 88175

== ENCOUNTER 2025-02-05 13:53 | Outpatient (REF) | payer OTHER, SELFPAY | END 2025-02-05 13:54 | disposition home or self-care (01) | LOC: HO.LAB 13:53 | PROVIDERS: Visit Provider Advanced Practice Midwife | DX: Z13.89 Encounter for screening for other disorder (principal) ==

== ENCOUNTER 2025-02-23 13:02 | Outpatient (AMB) | payer OTHER, SELFPAY ==
--- NOTE | 2025-02-23 13:03 | MHC.OFFVIS ---
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: Inside Sales Account Representative Present (Maryan) Allergies amoxicillin [AMOXICILLIN] Allergy (Mild, Verified 02/23/25 13:04) GIVES ME ANOTHER INFECTION HPI Comments Details: Presenting for abnormal Pap smear showing ascus/HPV high-risk positive, HPV 16 positive, HPV 18 negative [facility] Medical History Abnormal uterine bleeding (AUB) Sciatica Surgical History H/O elbow surgery Social History Alcohol intake: never Substance Use Type: Marijuana Female Reproductive History Menstrual Age of Menarche: 12 Review of Systems Const All systems reviewed & are unremarkable except as noted in HPI and below Reports as per HPI and Reports no additional complaints GI Reports no additional complaints Reports no additional complaints Office Procedures Colposcopy Colposcopy: Pre-Procedure Counseling: Before beginning the procedure, I conducted comprehensive counseling with the patient. We thoroughly discussed the procedure itself, including its details, alternatives, and all associated risks. This included but not limited to the following complications such as bleeding, infection, and injury to the vagina, bladder, and vessels, as well as the potential need for transfusion with all its associated risks. Subsequently, the patient sign the consent. Pap smear result: Ascus/HPV high-risk positive, HPV 16 positive, HPV 18 negative Urine test in office = Negative Procedure: During the procedure, the following steps were performed: A speculum was inserted, and acetic acid was applied. Colposcopy was conducted, allowing visualization of the transformation zone. Acetowhite lesions were identified at the 4+ 6 o'clock position. Cervical biopsies were obtained from the 4+ 6 o'clock position, followed by an endocervical curettage (ECC). Vaginoscopy of the upper vagina revealed no evidence of aceto-white lesions. Hemostasis was achieved using Monsel solution, and the patient tolerated the procedure well. Post-Procedure Instructions: The patient was advised to promptly contact the office or the after hours answering service or go to the emergency room if experiencing a temperature exceeding 100.4?F, abdominal pain, nausea/vomiting, or bleeding. Additionally, the patient was instructed to abstain from vaginal intercourse and bathtub use. The patient confirmed understanding of these instructions. Discharge Instructions: The patient was instructed to schedule a follow-up appointment in 2 weeks for further evaluation and management. Please note that this note was generated using a voice recognition program, and errors may have occurred during front office assistant. [id number] of cervix including upper vagina with biopsy and ECC Procedure code (CPT) selection complete Results AMB Test Urine AMB Test Urine Negative Last Edit by HOMER Cardenas on 02/23/25 13:09 Assessment & Plan Assessment & Plan (1) ASCUS with positive high risk HPV cervical: Comment: HPV 16 positive/HPV 18 negative Code(s): R87.610 - Atypical squamous cells of undetermined significance on cytologic smear of cervix (ASC-US); R87.810 - Cervical high risk human papillomavirus (HPV) DNA test positive Category: Medical Plan: Discussed with the patient the result of her abnormal pap, its significance, risk of progression, persistence, and regression. the false positive/negative rate of a Pap smear as a screening test in detecting cervical cancer and the indication for a diagnostic test -colposcopy, biopsy, endocervical curettage. The patient verbalized understanding and agreed with the plan, all questions answered. Colpo biopsy/ECC done, see procedure note Orders: Orders AMB Colposcopy Today R87.610 - Atypical squamous cells of undetermined significance on cytologic smear of cervix (ASC-US), R87.810 - Cervical high risk human papillomavirus (HPV) DNA test positive AMB HCG Urine Test Today Z32.02 - Encounter for test, result negative Coding Level of Care Code Procedure Only Diagnoses ASCUS with positive high risk HPV cervical R87.610; R87.810 CPT Codes Colposcopy - CPT: 43945-Iauhppyay of cervix including upper vagina with biopsy and ECC ([id number])
--- OUTSIDE RECORDS SUMMARY | 2025-02-23 15:28 | XMS_ITS | Data Portability ---
Author Organization [facility]aternal [facility], STANISLAW LAURENT (ProfRaysa) Address [address], [address] [place] [address] Assessment No assessment recorded. Plan of Treatment Reminders Order Date Submit Date Provider Last Modified By Organization Details Last Modified Time Details Appointments None record ed. Lab None record ed. Referral None record ed. Procedures None record ed. Surgeries None record ed. Imaging None record ed. Medication Orders None record ed. Patient TargetsNo targets recorded. Patient InstructionsNo instructions recorded. Reason for Referral None Reported. Problems Name Problem SNOMED Code Status Onset Date Resolution Date Notes Provider Name and Address Organization Details Recorded Time Known OR suspected abnormality affecting management of mother Active Not Available [facility] 6 03:38:52 Placental abruption - not delivered Active Not Available [facility] 6 03:38:55 screening Active Not Available [facility] 6 03:38:57 Problem Notes None recorded. Medical Equipment None Reported. Vitals None Recorded Social History None recorded. Functional Status None recorded. Mental Status None recorded. Family History Nothing Reported. Medical History No medical history recorded. Gynecological HistoryNo gynecological history recorded. Obstetrics History GPAL:G 0 P 0 0 0 0 Past Encounters Encounter ID Performer Location Encounter Start Date Encounter Closed Date Diagnosis/Indication Diagnosis SNOMED-CT Code Diagnosis ICD10 Code Diagnosis Note [id number] [address] 05/27/2015 11:57:38 05/27/2015 11:57:49 screening [id number] Placental abruption - not delivered [id number] [address] 07/06/2015 14:06:21 07/06/2015 14:06:28 Known OR suspected abnormality affecting management of mother [id number] [place] [address] 02/12/2018 17:27:01 02/12/2018 17:27:40 Health Concerns Section Related Observation LastModified by Organization Detai ls LastModified Time None Recorded Concern Status LastModified by Organization Details LastModified Time None Recorded Advance Directives Directive None Recorded Payers Encounter Date Sequence Insurance Name Policy Number Policy Cage Covered Member ID Cage Member ID Guarantor Name 05/24/2015 1 [facility] - HEALTH NET PLAN (MEDICAID HMO) [id number] Kathleen Khoury [id number] Kathleen Khoury 07/06/2015 1 [facility] HEALTH NET PLAN (MEDICAID HMO) [id number] Kathleen Khoury [id number] Kathleen Khoury 02/12/2018 1 [place] [facility] Alicia Khoury [id number] Kathleen Khoury OBGyn Episode No OBEpisode recorded.
== END 2025-02-23 13:50 | disposition home or self-care (01) ==
LOC: HO.HWS 13:02
PROVIDERS: PCP Internal Medicine; Visit Provider Obstetrics & Gynecology
DX: R87.610 Atypical squamous cells of undetermined significance on cytologic smear of cervix (ASC-US) (principal); R87.810 Cervical high risk human papillomavirus (HPV) DNA test positive; Z32.02 Encounter for pregnancy test, result negative
CPT/HCPCS: 57454

== ENCOUNTER 2025-02-23 13:02 | Outpatient (REF) | payer OTHER, SELFPAY | END 2025-02-23 13:03 | disposition home or self-care (01) | LOC: HO.LNP 13:02 | PROVIDERS: PCP Internal Medicine; Visit Provider Obstetrics & Gynecology | DX: R87.610 Atypical squamous cells of undetermined significance on cytologic smear of cervix (ASC-US) (principal); R87.810 Cervical high risk human papillomavirus (HPV) DNA test positive | CPT/HCPCS: 57454; 81025; 88300; 88305; 88341; 88342 ==

== ENCOUNTER 2025-02-26 13:59 | Outpatient (REF) | payer OTHER, SELFPAY ==
--- NOTE | ~2025-02-26 | US_ITS ---
CLINICAL HISTORY: N93.9 - Abnormal uterine and vaginal bleeding, unspecified US pelvis transabdominal and transvaginal with color Doppler Comparison: None Findings: Transabdominal scanning performed for overall anatomy. Transvaginal scanning performed for additional detail. LMP: 1 day ago Anteverted uterus, normal size and echotexture, measuring 8.2 x 3.7 x 4.3 cm. Well defined endometrium, measuring 4.0 mm in thickness. The right ovary measures, 3.6 x 1.6 x 1.6 cm. Normal sonographic appearance right ovary. Normal ovarian tissue on the left was not demonstrated. Echogenic shadowing structure in the left adnexa measuring 9.6 x 5.4 x 7.0 cm possible ovarian dermoid MRI would be confirmatory Trace free fluid Impression: 1. Normal uterus and right ovary. 2. Normal ovarian tissue on the left was not demonstrated. Large echogenic shadowing mass left adnexa may represent a ovarian dermoid contrast-enhanced MRI of the pelvis is the imaging modality of choice 3. Trace free fluid in the adnexa on the left This document has been electronically signed by: Ted Kang MD on 02/27/2025 10:50:33
--- OUTSIDE RECORDS SUMMARY | 2025-02-26 16:51 | XMS_ITS | Data Portability ---
Author Organization [facility] Maternal Medicine, STANISLAW LAURENT (ProfRaysa) Address [address], [address] [place] [address] Assessment No assessment recorded. Plan of Treatment [...] affecting management of mother Active Not Available [facility] 6 03:38:52 Placental abruption - not delivered Active Not Available [facility] 6 03:38:55 screening Active Not Available [facility] 6 03:38:57 Problem Notes None recorded. Medical [...] Code Diagnosis ICD10 Code Diagnosis Note [address] [address] 05/27/2015 11:57:38 05/27/2015 11:57:49 screening [id number] Placental abruption - not delivered [id number] [address] 07/06/2015 14:06:21 07/06/2015 14:06:28 Known OR suspected abnormality affecting management of mother [id number] [place] [address] 02/12/2018 17:27:01 02/12/2018 17:27:40 Health Concerns Section Related Observation LastModified by Organization Detai ls LastModified Time None Recorded Concern Status LastModified by Organization Details LastModified Time None Recorded Advance Directives Directive None Recorded Payers Encounter Date Sequence Insurance Name Policy Number Policy Cage Covered Member ID Cage Member ID Guarantor Name 05/24/2015 1 [facility] - HEALTH NET PLAN (MEDICAID HMO) [id number] Kathleen Khoury [id number] 5 Kathleen Khoury 07/06/2015 1 [facility] HEALTH NET PLAN (MEDICAID HMO) [id number] Kathleen Khoury [id number] Kathleen Khoury 02/12/2018 1 [place] [facility] Alicia Khoury [id number] Kathleen Khoury OBGyn Episode No OBEpisode recorded.
== END 2025-02-26 14:00 | disposition home or self-care (01) ==
LOC: HO.US 13:59
PROVIDERS: PCP Internal Medicine; Visit Provider Advanced Practice Midwife
DX: N93.9 Abnormal uterine and vaginal bleeding, unspecified (principal)
CPT/HCPCS: 76830; 76856

== ENCOUNTER → 2025-02-26 14:01 | Outpatient (BNV) | payer OTHER, SELFPAY | PROVIDERS: PCP Internal Medicine; Visit Provider Radiology Diagnostic Radiology | DX: N93.9 Abnormal uterine and vaginal bleeding, unspecified (principal) | CPT/HCPCS: 76830; 76856; 93975 ==

== ENCOUNTER 2025-03-04 10:49 | Outpatient (AMB) | payer OTHER, SELFPAY ==
--- NOTE | 2025-03-04 10:53 | MHC.OFFVIS ---
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 The patient is doing well with no complaints. The pathology showed the following: A. Cervix, 6 o'clock, biopsy: Small fragment of endocervical tissue within normal limits; no squamous epithelium identified. B. Cervix, 4 o'clock, biopsy: - High-grade squamous intraepithelial lesion (CHIKIS 2). - No endocervical epithelium identified. C. Endocervix, curettage: No tissue present. Comment: The findings are concordant with the patient's recent Pap ([id number]; ASCUS with positive HR and 16 HPV) - slide reviewed [facility] Medical History Abnormal uterine bleeding (AUB) Sciatica Surgical History H/O elbow surgery Social History Alcohol intake: never Substance Use Type: Marijuana Female Reproductive History Menstrual Age of Menarche: 12 Date of last menstrual period: 02/25/25 Total pregnancies: 2 Full term: 2 Review of Systems Card Reports as per HPI and Reports no additional complaints Resp Reports as per HPI and Reports no additional complaints GI Reports as per HPI and Reports no additional complaints Reports as per HPI Physical Exam Const General: cooperative, healthy appearing and comfortable Resp Effort & Inspection: normal respiratory effort Auscultation: clear to auscultation bilaterally Percussion: percussion normal Cardio Palpation: normal PMI Rate: regular rate Rhythm: regular rhythm Heart sounds: no murmurs and no rubs Peripheral pulses: Peripheral pulses 2+ throughout GI Inspection: Yes normal to inspection Palpation (GI): Soft to palpation, nontender, no guarding, not rigid and No hepatosplenomegaly present Percussion: Yes normal to percussion Auscultation: normal bowel sounds Rectal Exam - Female: deferred Assessment & Plan Assessment & Plan (1) CHIKIS II (cervical intraepithelial neoplasia II): Code(s): N87.1 - Moderate cervical dysplasia Category: Medical Plan: Discussed with the patient the pathology results of the colposcopy biopsies & endocervical curettage ( moderate dysplasia-CHIKIS 2). Discussed with the patient the sensitivity specificity, positive and negative predictive value in detecting cervical cancer in addition discussed the regression, persistence and progression rates. Addition discussed with the patient the risk of progression to cancer and impact of excision procedure on her future . Per ASCCP guidelines, 2 options of management were discussed with the patient including either observation with HPV based screening and colposcopy biopsy at 6 months and 12 months versus a diagnostic excisional procedures, which is the preferred method of management. The patient is concerned more about the progression of CHIKIS 2 to cancer than the excisional procedure impact on her future and she decided to proceed with a LEEP, possible cone with post cone ECC since ECC did not including any tissues, all the pros and cons and risks and benefits of the procedure were discussed with the patient, the patient verbalized understanding and agreed with the plan Coding Level of Care Code Est Pt Level 3 (82189) Diagnoses CHIKIS II (cervical intraepithelial neoplasia II) N87.1
--- OUTSIDE RECORDS SUMMARY | 2025-03-04 12:51 | XMS_ITS | Data Portability ---
Author Organization [facility]aternal [facility], STANISLAW LAURENT (ProfRaysa) Address [address], [address] [place] [address] Assessment No assessment recorded. Plan of Treatment [...] affecting management of mother Active Not Available [facility] 6 03:38:52 Placental abruption - not delivered Active Not Available [facility] 6 03:38:55 screening Active Not Available [facility] 6 03:38:57 Problem Notes None recorded. Medical [...] Code Diagnosis ICD10 Code Diagnosis Note [address] [address] 05/27/2015 11:57:38 05/27/2015 11:57:49 screening [id number] Placental abruption - not delivered [id number] [address] [address] 07/06/2015 14:06:21 07/06/2015 14:06:28 Known OR suspected abnormality affecting management of mother [id number] [address] AD[place]SH CARSON [address] 02/12/2018 17:27:01 02/12/2018 17:27:40 Health Concerns Section Related Observation LastModified by Organization Detai ls LastModified Time None Recorded Concern Status LastModified by Organization Details LastModified Time None Recorded Advance Directives Directive None Recorded Payers Encounter Date Sequence Insurance Name Policy Number Policy Cage Covered Member ID Cage Member ID Guarantor Name 05/24/2015 1 [facility] - HEALTH NET PLAN (MEDICAID HMO) [id number] Kathleen Khoury [id number] Kathleen Khoury 07/06/2015 1 [facility] HEALTH NET PLAN (MEDICAID HMO) [id number] Kathleen Khoury [id number] Kathleen Khoury 02/12/2018 1 [place] [facility] Alicia Khoury [id number] Kathleen Khoury OBGyn Episode No OBEpisode recorded.
== END 2025-03-04 11:30 | disposition home or self-care (01) ==
LOC: HO.HWS 10:49
PROVIDERS: PCP Internal Medicine; Visit Provider Obstetrics & Gynecology
DX: N87.1 Moderate cervical dysplasia (principal)
CPT/HCPCS: 99213

== ENCOUNTER → 2025-03-04 10:49 | Outpatient (BNVA) | payer OTHER, SELFPAY | PROVIDERS: PCP Internal Medicine; Visit Provider Obstetrics & Gynecology | DX: N87.1 Moderate cervical dysplasia (principal) | CPT/HCPCS: 99212 ==

== ENCOUNTER 2025-03-05 13:26 | Outpatient (AMB) | payer OTHER, SELFPAY ==
--- NOTE | 2025-03-05 13:27 | MHC.OFFVIS ---
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 History of CHIKIS 2 has a LEEP procedure next week. She denies any pelvic pain occasionally notes some pressure on her right side. PFSH Medical History Ovarian mass, left Abnormal uterine bleeding (AUB) Sciatica Surgical History H/O elbow surgery Social History Alcohol intake: never Substance Use Type: Marijuana Female Reproductive History Menstrual Age of Menarche: 12 Date of last menstrual period: 02/25/25 Review of Systems Const All systems reviewed & are unremarkable except as noted in HPI and below Endo Reports no additional complaints Physical Exam Const General: cooperative, healthy appearing and no acute distress Psych Appearance: well kempt Attitude: cooperative Thought process: Normal thought process present Results Reviewed Results Reviewed: [address] [address] Ultrasound Report Signed Patient: Kathleen Khoury MR#: [id number] : 1990 Acct:[id number] Age/Sex: 34 / F ADM Date: 02/26/25 Loc: HO.US Attending Dr: Patricia Fofana CNM Ordering Physician: Patricia Fofana CNM Date of Service: 02/26/25 Procedure(s): US pelvic and transvaginal Accession Number(s): [id number] cc: Patricia Fofana CNM; Farrukh Sullivan MD~ CLINICAL HISTORY: N93.9 - Abnormal uterine and vaginal bleeding, unspecified US pelvis transabdominal and transvaginal with color Doppler Comparison: None Findings: Transabdominal scanning performed for overall anatomy. Transvaginal scanning performed for additional detail. LMP: 1 day ago Anteverted uterus, normal size and echotexture, measuring 8.2 x 3.7 x 4.3 cm. Well defined endometrium, measuring 4.0 mm in thickness. The right ovary measures, 3.6 x 1.6 x 1.6 cm. Normal sonographic appearance right ovary. Normal ovarian tissue on the left was not demonstrated. Echogenic shadowing structure in the left adnexa measuring 9.6 x 5.4 x 7.0 cm possible ovarian dermoid MRI would be confirmatory Trace free fluid Impression: 1. Normal uterus and right ovary. 2. Normal ovarian tissue on the left was not demonstrated. Large echogenic shadowing mass left adnexa may represent a ovarian dermoid contrast-enhanced MRI of the pelvis is the imaging modality of choice 3. Trace free fluid in the adnexa on the left This document has been electronically signed by: Ted Kang MD on 02/27/2025 10:50:33 Dictated By: Ted Kang MD Signed By: <Electronically signed by Ted Kang MD in OV> 02/27/25 1051 DD/ 1050 TD/TT: 02/27/25 1050 Metal Lather: Assessment & Plan Assessment & Plan (1) Ovarian mass, left: Code(s): N83.8 - Other noninflammatory disorders of ovary, fallopian tube and broad ligament Category: Medical Plan Discussed: Ultrasound findings- Impression: 1. Normal uterus and right ovary. 2. Normal ovarian tissue on the left was not demonstrated. Large echogenic shadowing mass left adnexa may represent a ovarian dermoid contrast-enhanced MRI of the pelvis is the imaging modality of choice 3. Trace free fluid in the adnexa on the left Workup for ovarian mass, probable dermoid, labs to include CA 125, CEA, CA 19-9. Referral to back tender pulp drier reviewed plan of care with Dr. Miller. Patient counseled regarding pelvic warnings and when to call or seek immediate care at the emergency room it has any sudden severe pain or pain that is worsening and not improving due to the risk of ovarian torsion. The patient expressed understanding and agreement with the plan of care. All of her questions and concerns were addressed to the best of my ability. This note is constructed using voice recognition software. While every effort has been made to ensure accuracy, restaurant manager errors may have been included. Orders: Orders Carbohydrate Antigen 19-9 Today N83.8 - Other noninflammatory disorders of ovary, fallopian tube and broad ligament CA-125 Today N83.299 - Other ovarian cyst, unspecified side, N83.8 - Other noninflammatory disorders of ovary, fallopian tube and broad ligament Carcinoembryonic Antigen Today N83.8 - Other noninflammatory disorders of ovary, fallopian tube and broad ligament Referrals SPOT REMOVER Referral N83.8 - Other noninflammatory disorders of ovary, fallopian tube and broad ligament Coding Level of Care Code Est Pt Level 3 (38235) Diagnoses Ovarian mass, left N83.8
--- OUTSIDE RECORDS SUMMARY | 2025-03-05 16:28 | XMS_ITS | Data Portability ---
Author Organization [facility] Maternal Medicine, STANISLAW LAURENT (ProfRaysa) Address [address], [address] [place] [address] Assessment No assessment recorded. Plan of Treatment [...] affecting management of mother Active Not Available [facility] 6 03:38:52 Placental abruption - not delivered Active Not Available [facility] 6 03:38:55 screening Active Not Available [facility] 6 03:38:57 Problem Notes None recorded. Medical [...] Code Diagnosis ICD10 Code Diagnosis Note [address] [address] 05/27/2015 11:57:38 05/27/2015 11:57:49 screening [id number] Placental abruption - not delivered [id number] [address] [address] 07/06/2015 14:06:21 07/06/2015 14:06:28 Known OR suspected abnormality affecting management of mother [id number] [address] [place] [address] 02/12/2018 17:27:01 02/12/2018 17:27:40 Health Concerns Section Related Observation LastModified by Organization Detai ls LastModified Time None Recorded Concern Status LastModified by Organization Details LastModified Time None Recorded Advance Directives Directive None Recorded Payers Encounter Date Sequence Insurance Name Policy Number Policy Cage Covered Member ID Cage Member ID Guarantor Name 05/24/2015 1 [facility] HE[facility] NET PLAN (MEDICAID HMO) [id number] Kathleen Khoury [id number] Kathleen Khoury 07/06/2015 1 [facility] HE[facility] NET PLAN (MEDICAID HMO) [id number] Kathleen Khoury [id number] Kathleen Khoury 02/12/2018 1 [place] [facility] Alicia Khoury [id number] Kathleen Khoury OBGyn Episode No OBEpisode recorded.
== END 2025-03-05 14:31 | disposition home or self-care (01) ==
LOC: HO.HWS 13:26
PROVIDERS: PCP Internal Medicine; Visit Provider Advanced Practice Midwife
DX: N83.8 Other noninflammatory disorders of ovary, fallopian tube and broad ligament (principal)
CPT/HCPCS: 99213

== ENCOUNTER 2025-03-05 13:26 | Outpatient (REF) | payer OTHER, SELFPAY ==
[2025-03-05 15:14] LABS: Carcinoembryonic Antigen < 1.73 ng/mL
[2025-03-06 10:28] LABS: CA-125 10 U/mL (<35); Carbohydrate Antigen 19-9 21 U/mL (<34)
== END 2025-03-05 13:27 | disposition home or self-care (01) ==
LOC: HO.LAB 13:26
PROVIDERS: PCP Internal Medicine; Visit Provider Advanced Practice Midwife
DX: N83.8 Other noninflammatory disorders of ovary, fallopian tube and broad ligament (principal); N83.299 Other ovarian cyst, unspecified side
CPT/HCPCS: 36415; 82378; 86301; 86304; 99212

== ENCOUNTER 2025-05-03 15:19 | Outpatient (REF) | payer MEDICAID, SELFPAY ==
--- NOTE | ~2025-05-03 | MR_ITS ---
CLINICAL HISTORY: LEFT OVARIAN MASS MR pelviswith and without gadolinium Comparison: US/MT - US PELVIC AND TRANSVAGINAL - 02/26/25 14:11 EDT Findings: There is a large left ovarian thin-walled cystic lesion measuring 6.1 x 6.8 x 5.3 cm. The lesion has complex signal intensity relatively bright on both T1 and T2 weighted sequences. Lesion demonstrates diminished signal on fat saturated images. There are no solid components or significant septations. There is no evidence of enhancement. There is a right ovarian cyst measuring up to 2.4 cm in greatest diameter. IMPRESSION: 1. Relatively large left adnexal lesion having a thin wall and no significant enhancement and with significantly reduced signal intensity on fat saturated images. The lesion likely represents a dermoid. 2. 2.4 cm right ovarian cyst. This document has been electronically signed by: Sacha Zamora MD on 05/05/2025 08:36:20
[2025-05-03] MEDS: gadobutroL 7.5 ML VIAL IVPUSH (16:02)
== END 2025-05-03 15:20 | disposition home or self-care (01) ==
LOC: HO.MRI 15:19
PROVIDERS: Visit Provider Advanced Practice Midwife
DX: N83.8 Other noninflammatory disorders of ovary, fallopian tube and broad ligament (principal)
CPT/HCPCS: 72197; A9585

== ENCOUNTER → 2025-05-03 15:35 | Outpatient (BNV) | payer MEDICAID, SELFPAY | PROVIDERS: Visit Provider Radiology Diagnostic Radiology | DX: N83.202 Unspecified ovarian cyst, left side (principal) | CPT/HCPCS: 72197 ==

== ENCOUNTER 2025-05-06 09:10 | Outpatient (AMB) | payer MEDICAID, SELFPAY ==
--- NOTE | 2025-05-06 09:10 | MHC.OFFVIS ---
Intake Visit Reasons: MRI results Switch Operator: Switch Operator Present Allergies amoxicillin (AMOXICILLIN) Allergy (Mild, Verified 03/04/25 10:54) GIVES ME ANOTHER INFECTION Is last menstrual period known: Yes HPI Comments Details: Patient is here for a follow up MRI history of large left ovarian mass suspected dermoid. Currently not having any pain in the pelvic area. She admits that she missed her consult appointment at [facility] April 23 due to her brother passing away unexpectedly. [facility] Medical History Ovarian mass, left Abnormal uterine bleeding (AUB) Sciatica Surgical History H/O elbow surgery Family History Brother Drug overdose Social History Alcohol intake: never Substance Use Type: Marijuana Female Reproductive History Menstrual Age of Menarche: 12 Review of Systems Const All systems reviewed & are unremarkable except as noted in HPI and below Endo Reports no additional complaints Physical Exam Const General: cooperative, healthy appearing and no acute distress Psych Appearance: well kempt Attitude: cooperative Thought process: Normal thought process present Results Reviewed Results Reviewed: [place] [address] Magnetic Resonance Report Signed Patient: Kathleen Khoury MR#: [id number] : 1990 Acct:[id number] Age/Sex: 35 / F ADM Date: 05/03/25 Loc: HO.MRI Attending Dr: Patricia Fofana CNM Ordering Physician: Patricia Fofana CNM Date of Service: 05/03/25 Procedure(s): MR pelvis wo/w con Accession Number(s): [id number] cc: Patricia Fofana CNM~ CLINICAL HISTORY: LEFT OVARIAN MASS MR pelviswith and without gadolinium Comparison: US/PA - US PELVIC AND TRANSVAGINAL - 02/26/25 14:11 EDT Findings: There is a large left ovarian thin-walled cystic lesion measuring 6.1 x 6.8 x 5.3 cm. The lesion has complex signal intensity relatively bright on both T1 and T2 weighted sequences. Lesion demonstrates diminished signal on fat saturated images. There are no solid components or significant septations. There is no evidence of enhancement. There is a right ovarian cyst measuring up to 2.4 cm in greatest diameter. This document has been electronically signed by: Sacha Zamora MD on 05/05/2025 08:36:20 Dictated By: Sacha Zamora MD Signed By: <Electronically signed by Sacha Zamora MD in OV> 05/05/25835 DD/ 5 TD/TT: 05/05/25835 Hand Launderer: Assessment & Plan Assessment & Plan (1) Ovarian mass, left: Code(s): N83.8 - Other noninflammatory disorders of ovary, fallopian tube and broad ligament Category: Medical Plan Discussed: Ultrasound findings- Findings: There is a large left ovarian thin-walled cystic lesion measuring 6.1 x 6.8 x 5.3 cm. The lesion has complex signal intensity relatively bright on both T1 and T2 weighted sequences. Lesion demonstrates diminished signal on fat saturated images. There are no solid components or significant septations. There is no evidence of enhancement. There is a right ovarian cyst measuring up to 2.4 cm in greatest diameter. Reviewed warning signs for ovarian torsion if any sudden pain, or increasing pain on the left side to report to the [facility] ED immediately. Plan rescheduling to [facility] for surgical consult to be sent in today. The patient expressed understanding and agreement with the plan of care. All of her questions and concerns were addressed to the best of my ability. This note is constructed using voice recognition software. While every effort has been made to ensure accuracy, charge poster errors may have been included. Coding Level of Care Code Est Pt Level 3 (46847) Diagnoses Ovarian mass, left N83.8
--- OUTSIDE RECORDS SUMMARY | 2025-05-06 09:53 | XMS_ITS | Data Portability ---
Author Organization [facility] Maternal Medicine, STANISLAW LAURENT (ProfRaysa) Address [address], [address] [place] [address] Assessment No assessment recorded. Plan of Treatment [...] affecting management of mother Active Not Available [facility] 6 03:38:52 Placental abruption - not delivered Active Not Available [facility] 6 03:38:55 screening Active Not Available [facility] 6 03:38:57 Problem Notes None recorded. Medical [...] Code Diagnosis ICD10 Code Diagnosis Note 7050 Scottie Gilliland MD [address] [address] 05/27/2015 11:57:38 05/27/2015 11:57:49 screening [id number] Placental abruption - not delivered 7744 Scottie Gilliland MD [address] [address] 07/06/2015 14:06:21 07/06/2015 14:06:28 Known OR suspected abnormality affecting management of mother [id number] 13308 Scottie Gilliland MD [address] [place] [address] 02/12/2018 17:27:01 02/12/2018 17:27:40 Health Concerns Section Related Observation LastModified by Organization Detai ls LastModified Time None Recorded Concern Status LastModified by Organization Details LastModified Time None Recorded Advance Directives Directive None Recorded Payers Insurance Date Sequence Insurance Name Policy Number Policy Cage Covered Member ID Cage Member ID Guarantor Name 02/11/2018 1 [facility] [email or web address] [facility] PL[facility] (MEDICAID HMO) [id number] Kathleen Khoury [id number] Kathleen Khoury 02/14/2018 1 [place] [facility] Alicia Khoury [id number] Kathleen Khoury 03/24/2019 1 [facility] PLAN (MEDICAID HMO) [facility] Kathleen Khoury [id number] Kathleen Khoury 02/01/2018 2 [place] [facility] Kathleen Khoury [id number] Kathleen Khoury OBGyn Episode No OBEpisode recorded.
== END 2025-05-06 09:26 | disposition home or self-care (01) ==
LOC: HO.HWS 09:10
PROVIDERS: Visit Provider Advanced Practice Midwife
DX: N83.8 Other noninflammatory disorders of ovary, fallopian tube and broad ligament (principal)
CPT/HCPCS: 99213

== ENCOUNTER → 2025-05-06 09:10 | Outpatient (BNVA) | payer MEDICAID, SELFPAY | PROVIDERS: Visit Provider Advanced Practice Midwife | DX: N83.8 Other noninflammatory disorders of ovary, fallopian tube and broad ligament (principal) | CPT/HCPCS: 99212 ==

== ENCOUNTER 2025-09-02 18:13 | Emergency (ER) | payer MEDICAID, SELFPAY ==
--- NOTE | ~2025-09-02 | XR_ITS ---
CLINICAL HISTORY: right abd pain ?constipation 1 view abdomen Comparison: None provided Findings: No pneumoperitoneum or pneumatosis. No abnormal calcifications. No acute fractures. IMPRESSION: The bowel gas pattern is within normal limits This document has been electronically signed by: Rakan Marlow MD on 09/02/2025 19:14:35
[2025-09-02 18:37] VITALS: BP 122/78; PULSE 105; RESP 18; TEMP 36.8; O2SAT 99; BMI 18.6
--- NOTE | 2025-09-02 18:40 | ED.GENADULT ---
HPI - General Adult General Chief complaint: Abdominal Pain Stated complaint: right lower quadrant pain Time Seen by Provider: 09/02/25 21:41 Source: patient Mode of arrival: ambulatory Limitations: no limitations History of Present Illness ED Provider: HPI narrative: 35-year-old woman presenting with epigastric and some right upper quadrant abdominal pain worse for the past 1 month but started likely prior to that, she is status post bilateral ovarian cystectomy, this is intermittent pain, no nausea no vomiting, reports history of constipation, but today had loose bowel movements, she is on Suboxone, no ongoing drug use nonsmoker nondrinker otherwise, pain seems to be somewhat postprandial. No vaginal bleeding or discharge, she states 1st time she had sexual intercourse after surgery was yesterday. Related Data Home Medications ?Medication ?Instructions ?Recorded ?Confirmed tramadol 09/14/20 buprenorphine 8 mg-naloxone 2 mg 1 film buccal DAILY 10/08/24 sublingual film (Suboxone) Previous Rx's ?Medication ?Instructions ?Recorded ibuprofen 800 mg tablet 800 mg PO Q8H PRN pain #30 tabs 09/14/20 lidocaine 3 %-hydrocortisone 0.5 % 1 appl [place] BID #98 grams 07/08/23 rectal cream famotidine 20 mg tablet 20 mg PO BEDTIME #30 tabs 09/02/25 Allergies Allergy/AdvReac Type Severity Reaction Status Date / Time amoxicillin (AMOXICILLIN) Allergy Mild GIVES ME Verified 03/04/25 10:54 ANOTHER INFECTION adhesive tape Allergy Rash Verified 09/02/25 18:41 Review of Systems Constitutional: Constitutional: Reports as per [facility] Past Medical History Medical History Ovarian mass, left Abnormal uterine bleeding (AUB) Sciatica Surgical History H/O elbow surgery Family History Family History Brother Drug overdose Social History Social History Alcohol intake: never Substance Use Type: Marijuana Advance Directives: No Advance Directives Information Provided: Yes Physical Exam ED Exam Exam: General: ?Appears of stated age ? ?PERRLA, EOMI, MMM, no scleral icterus ? Neck: Supple, no LAD ? ?CV: RRR, no obvious murmurs appreciated ? ?Resp: ?No wheezing rales rhonchi no stridor moving air well ? Abd: ?Hyperactive bowel sounds, no tenderness in the lower quadrants, epigastric tenderness no rebound no rigidity ? ?MSK: FROM, strength 5/5 all extremities ? Skin: Warm, dry, intact, no jaundice ? ?Neuro: ?Alert and oriented x3, moving upper and lower extremities symmetrically, no obvious facial asymmetry noted, cranial nerves 2-12 intact Vital Signs: Vital Signs - 24 hr 09/02/25 18:37 Temperature 98.2 F Pulse Rate 105 H Respiratory Rate 18 Blood Pressure 122/78 Pulse Oximetry 99 Oxygen Delivery Method Room Air BMI result Body Mass Index 18.6 Course Course Course Narrative: This is a Rapid Medical Examination (RME) performed by Vlad Lara PA-C in triage. Full HPI, ROS, assessment and treatment plan per primary provider in the Main ED. Hx: 35 yo F here for eval of right upper abdominal pain x1 week. worse w/ eating. no N/V/D. admits to surgery at [facility] for removal of b/l ovarian cysts. she did not have her ovaries removed. reports constipation since surgery, having small BMs. passing flatus. Plan: labs, KUB Procedures Ultrasound ED POC Ultrasound: EMERGENCY ULTRASOUND REPORT?Point of Care Biliary Indication: Gallbladder: ?Sagittal GB: 1-1/2 mm ?Transverse GB: 1.7 mm ? CBD: Less than 2 mm Impression: No pericholecystic fluid, no stones or sludge, no CBD dilation Medical Decision Making Medical Decision Making [facility] Narrative: 10:09 PM 09/02/2025 (Dr. Ashvin Couch): Overall well-appearing woman presenting with epigastric and possibly right upper quadrant pain, this is not chronic, biliary colic was 1 of the considerations bedside ultrasound without pericholecystic fluid or CBD dilation, LFTs are not elevated, no evidence for obstructive patterns on x-ray or abdominal exam, at the time of my initial evaluation has not been done I will added on, but she just had 1st sexual intercourse since surgery yesterday no vaginal bleeding or discharge no hematuria or dysuria. Nothing to suspect appendicitis or ovarian torsion on exam did not feel further imaging such as CT is indicated. Differential Diagnosis Differential Diagnoses: The differential diagnosis associated with the presentation includes (Cholecystitis, pancreatitis, hepatitis, gastritis, cholangitis, choledocholithiasis, SBO, postoperative infection, ,) Admission/Observation Consideration of admission/observation: Escalation of care including admission/observation considered Lab Data MDM Lab Attestation statement: I reviewed the patient's lab results. 09/02/25 19:04 09/02/25 19:04 Labs: Lab Results 09/02/25 Range/Units 19:04 WBC 5.5 (4.8-10.8) X10*3/uL RBC 4.44 (4.20-5.50) X10*6/uL Hgb 12.3 (12.0-16.0) g/dl Hct 37.7 (37.0-47.0) % MCV 84.9 (80.0-98.0) fL MCH 27.7 (27.0-33.0) pg MCHC 32.6 (31.0-35.0) g/dl RDW 12.4 (11.0-16.0) % Plt Count 363 (160-400) X10*3/uL MPV 9.0 L (9.4-12.3) fL Immature Gran % (Auto) 0.0 (0.0-0.4) % Neut % (Auto) 46.2 (45-73) % Lymph % (Auto) 43.1 H (20-40) % Larue % (Auto) 6.9 (2-11) % Eos % (Auto) 3.1 (0-4) % Baso % (Auto) 0.7 (0-2) % Lymph # (Auto) 2.4 (1.2-4.9) X10*3/uL Larue # (Auto) 0.4 (0.1-1.2) X10*3/uL Eos # (Auto) 0.2 (0.0-0.4) X10*3/uL Baso # (Auto) 0.0 (0.0-0.2) X10*3/uL Abs Immat Gran (auto) 0.00 (0.00-0.03) X10*3/uL Absolute Neuts (auto) 2.6 (2.0-8.3) x10*3/uL Absolute Nucleated RBC 0.000 (0.0-0.012) X10*3/uL Nucleated RBC % (auto) 0.0 (0.0-0.2) /100WBC Sodium 138 (135-145) mmol/L Potassium 3.9 (3.3-5.1) mmol/L Chloride 108 (96-108) mmol/L Carbon Dioxide 25 (22-29) mmol/L Anion Gap 9 L (12-20) BUN 8 L (9-16) mg/dL Creatinine 0.63 (0.5-1.4) mg/dL Estim Creat Clear Calc 102.7 Estimated GFR > 60 Random Glucose 103 (60-115) mg/dL Calcium 9.2 (8.4-10.2) mg/dL Magnesium 2.2 (1.6-2.6) mg/dL Total Bilirubin 0.9 (0.0-1.0) mg/dL AST 20 (5-31) U/L ALT 15 (0-31) U/L Alkaline Phosphatase 58 (39-117) U/L Total Protein 7.8 (6.5-8.0) g/dL Albumin 4.8 (3.5-5.0) g/dL Lipase 18 (8-78) U/L Urine Color Yellow Urine Appearance Cloudy Urine pH 5.5 (5.0-9.0) Ur Specific [place] >= 1.030 H (1.005-1.025) Urine Protein Negative (Neg-Trace) mg/dL Urine Glucose (UA) Negative (Negative) mg/dL Urine Ketones Trace (Negative) mg/dL Urine Blood Small (1+) H (Negative) Urine Nitrite Negative (Negative) Ur Leukocyte Esterase Small (1+) H (Negative) Urine RBC 6-10 H (0-2) /HPF Urine WBC 6-10 H (0-5) /HPF Ur Squamous Epith Cells >20 (0-2) /HPF Urine Bacteria 4+ (None Seen) Hyaline Casts 0-2 (0-2) /LPF Independent Interpretation I performed an independent interpretation of an: Plain X-Ray (No foreign bodies, no obstructive patterns, no free air) Radiology Impression Discussion of test interpretation with radiology: I have reviewed the radiologist's reading. ( Findings: No pneumoperitoneum or pneumatosis. No abnormal calcifications. No acute fractures. IMPRESSION: The bowel gas pattern is within normal limits) Tests considered The following testing was considered but not selected: CT abdomen and pelvis with IV contrast Discharge Plan Discharge Clinical Impression: Epigastric abdominal pain Patient Disposition: Home, Self-Care Additional Instructions: Your blood work has been reassuring nothing to suspect postoperative infection or inflammation of the liver or gallbladder and ultrasound done at bedside of the gallbladder also looked unremarkable, I suspect your stomach lining maybe aimed, we discussed some dietary changes, start taking famotidine, change in diet as we have discussed, abdominal x-ray without any evidence of significant stool burden to suspect constipation, you can take Tylenol 975 mg every 6 hours needed for pain, use famotidine as I prescribed, follow up with the PCP any other issues or concerns come back to the ER Prescriptions: New famotidine 20 mg tablet 20 mg PO BEDTIME Qty: 30 0RF No Action tramadol 10 mg tablet Patient Comments: pt ran out of the tramadol ibuprofen 800 mg tablet 800 mg PO Q8H PRN (Reason: pain) Qty: 30 0RF lidocaine HCl-hydrocortison ac 3-0.5 % cream 1 appl [place] BID Qty: 98 0RF buprenorphine-naloxone [Suboxone] 8-2 mg film 1 film buccal DAILY Referrals: [facility] [Primary Care Provider, Medical] - 2 weeks Clinical Impression: Epigastric abdominal pain Print Language: Omani
[2025-09-02 19:07] LABS: MANUAL DIFF FLAG NO
[2025-09-02 19:14] LABS: Appearance Urine Cloudy; Glucose Urine UA Negative (Negative); PH 5.5 (5.0-9.0); Specific Gravity - Urine >= 1.030 (1.005-1.025); UMIC TRIGGER UACC YES
[2025-09-02 19:15] LABS: Hematocrit 37.7 % (37.0-47.0); Hemoglobin 12.3 g/dl (12.0-16.0); Imm Gran Abs Auto 0.00 X10*3/uL (0.00-0.03); Imm Gran Pct Auto 0.0 % (0.0-0.4); Lymphocytes Absolute Auto 2.4 X10*3/uL (1.2-4.9); Mean Corpuscular HGB Conc 32.6 g/dl (31.0-35.0); Mean Corpuscular Hemoglobin 27.7 pg (27.0-33.0); Mean Corpuscular Volume 84.9 fL (80.0-98.0); NRBC Abs Auto 0.000 X10*3/uL (0.0-0.012); NRBC Pct Auto 0.0 /100WBC (0.0-0.2); Platelet Count 363 X10*3/uL (160-400); Red Blood Count 4.44 X10*6/uL (4.20-5.50); White Blood Count 5.5 X10*3/uL (4.8-10.8)
[2025-09-02 19:28] LABS: UACC Culture Trigger YES
[2025-09-02 19:38] LABS: Alanine Aminotransferase 15 U/L (0-31); Albumin Level 4.8 g/dL (3.5-5.0); Alkaline Phosphatase 58 U/L (39-117); Anion Gap 9 (12-20); Aspartate Amino Transferase 20 U/L (5-31); Blood Urea Nitrogen 8 mg/dL (9-16); Calcium 9.2 mg/dL (8.4-10.2); Carbon Dioxide 25 mmol/L (22-29); Chloride 108 mmol/L (96-108); Creatinine Clr Calc Pharmacy 102.7; Estimated Glomerular Filt Rate > 60; Lipase 18 U/L (8-78); Magnesium 2.2 mg/dL (1.6-2.6); Potassium 3.9 mmol/L (3.3-5.1); Sodium 138 mmol/L (135-145); Total Protein 7.8 g/dL (6.5-8.0)
[2025-09-02 22:27] VITALS: BP 95/60; PULSE 77; RESP 18; TEMP 36.8; O2SAT 98
[2025-09-02 22:32] VITALS: BP 95/60; PULSE 77; RESP 18; TEMP 36.8; O2SAT 98
== END 2025-09-02 22:33 | disposition home or self-care (01) ==
PROVIDERS: Physician Assistant Medical; Emergency Provider Emergency Medicine
DX: R10.13 Epigastric pain (principal); Z90.721 Acquired absence of ovaries, unilateral; Z79.899 Other long term (current) drug therapy; Z87.19 Personal history of other diseases of the digestive system
CPT/HCPCS: 36415; 74018; 80053; 81001; 83690; 83735; 84702; 85025; 87086; 99283

== ENCOUNTER → 2025-09-02 18:40 | Outpatient (BNV) | payer MEDICAID, SELFPAY | PROVIDERS: Visit Provider Radiology Diagnostic Radiology | DX: R10.31 Right lower quadrant pain (principal) | CPT/HCPCS: 74018 ==